=== PATIENT | female | born 1980 | race Caucasian/White ===

== ENCOUNTER 2019-06-19 18:46 | Emergency (ER) | payer OTHER ==
[2019-06-19 19:04] LABS: BILIRUBIN,URINE NEGATIVE (NEGATIVE); GLUCOSE, URINE (UA) NEGATIVE (NEGATIVE); KETONES,URINE (UA) NEGATIVE (NEGATIVE); LEUKOCYTE ESTERASE, URINE TRACE (NEGATIVE); NITRITE,URINE NEGATIVE (NEGATIVE); OCCULT BLOOD,URINE TRACE-INTA (NEGATIVE); PH,URINE 6.5 PH (5.0-7.5); PROTEIN,URINE NEGATIVE (NEGATIVE); UROBILINOGEN,URINE 0.2 (NORMAL) E.U./dL (NORMAL)
[2019-06-19 19:05] LABS: CLARITY,URINE CLEAR (CLEAR); HCG UR QUAL NEGATIVE
[2019-06-19] MEDS ORDERED: ONDANSETRON 4 MG/2 ML VIAL IVP STA (19:09)
[2019-06-19] MEDS ORDERED: HYDROmorphone 1 MG/ML CARPUJECT IVP STA (19:09)
--- NOTE | 2019-06-19 19:10 | ED Physician Documentation ---
PD HPI ABD PAIN - Stated complaint Stated Complaint: RT SIDE ADB PX/NAUSEA - Chief complaint Chief Complaint: Abd Pain - History obtained from History obtained from: Patient - History of Present Illness Timing - onset: Other (For the last couple of weeks she has had increasing episodic right upper quadrant pain radiating to the back and right shoulder. Its been especially bad over the last couple of days. It was especially bad last night after eating a fan fatty meal. She saw her doctor on . Reportedly labs were negative. She had an x-ray that was negative. She is scheduled for an ultrasound but is getting worse rapidly. No history of abdominal surgeries.) Review of Systems Ten Systems: 10 systems reviewed and negative Constitutional: denies: Fever, Chills Throat: reports: Reviewed and negative Cardiac: reports: Reviewed and negative Respiratory: reports: Reviewed and negative PD PAST MEDICAL HISTORY - Present Medications Home Medications: Ambulatory Orders Medication Instructions Recorded Confirmed Hydrocodone/Acetaminophen 1 - 2 each PO Q6H PRN #14 tablet 06/19/19 [Hydrocodon-Acetaminophen 5-325] - Allergies Allergies/Adverse Reactions: Allergies Allergy/AdvReac Type Severity Reaction Status Date / Time No Known Drug Allergies Allergy Verified 06/19/19 18:49 PD ED PE NORMAL - Vitals Vital signs reviewed: Yes - General General: Alert and oriented X 3, No acute distress - HEENT HEENT: PERRL, EOMI - Neck Neck: Supple, no meningeal sign, No bony TTP - Cardiac Cardiac: RRR, No murmur - Respiratory Respiratory: No respiratory distress, Clear bilaterally - Abdomen Abdomen: Soft, Other (Focal tenderness in the right upper quadrant with positive Acosta sign) - Back Back: No CVA TTP, No spinal TTP - Derm Derm: Normal color, Warm and dry - Extremities Extremities: No edema, No calf tenderness / cord - Neuro Neuro: Alert and oriented X 3, Normal speech Results - Vitals Vitals: Vital Signs - 24 hr 06/19/19 06/19/19 06/19/19 18:49 19:13 20:21 Temperature 36.5 C Heart Rate 87 80 90 Respiratory 16 20 17 Rate Blood Pressure 124/92 H 149/117 H 132/81 H O2 Saturation 99 99 97 06/19/19 21:04 Temperature Heart Rate 84 Respiratory 17 Rate Blood Pressure 141/99 H O2 Saturation 99 Oxygen O2 Source Room air - EKG (time done) 1859 Rate: Rate (enter#) (82) Rhythm: NSR [place]: Normal Intervals: Normal TN QRS: LVH Ischemia: Normal ST segments Computer interpretation: Agree with computer - Labs Labs: Laboratory Tests 06/19/19 06/19/19 06/19/19 18:56 18:56 19:20 WBC 10.0 RBC 4.45 Hgb 12.8 Hct 38.8 MCV 87.2 MCH 28.8 MCHC 33.0 RDW 12.5 Plt Count 379 MPV 8.5 Neut # (Auto) 6.3 Lymph # (Auto) 2.7 [place] # (Auto) 0.7 Eos # (Auto) 0.2 Baso # (Auto) 0.0 Absolute Nucleated RBC 0.00 Nucleated RBC % 0.0 D-Dimer Sodium Potassium Chloride Carbon Dioxide Anion Gap BUN Creatinine Estimated GFR (MDRD) Glucose Calcium Total Bilirubin AST ALT Alkaline Phosphatase Total Protein Albumin Globulin Albumin/Globulin Ratio Lipase Urine Color LT. YELLOW Urine Clarity CLEAR Urine pH 6.5 Ur Specific [place] <=1.005 <=1.005 Urine Protein NEGATIVE Urine Glucose (UA) NEGATIVE Urine Ketones NEGATIVE Urine Occult Blood TRACE-INTA Urine Nitrite NEGATIVE Urine Bilirubin NEGATIVE Urine Urobilinogen 0.2 (NORMAL) Ur Leukocyte Esterase TRACE H Urine RBC 0-5 Urine WBC 0-3 Ur Squamous Epith Cells MOD Squamous H Urine Bacteria Rare Ur Microscopic Review INDICATED Urine Culture Comments NOT INDICATED Urine HCG, Qual NEGATIVE 06/19/19 06/19/19 19:20 19:20 WBC RBC Hgb Hct MCV MCH MCHC RDW Plt Count MPV Neut # (Auto) Lymph # (Auto) [place] # (Auto) Eos # (Auto) Baso # (Auto) Absolute Nucleated RBC Nucleated RBC % D-Dimer 257.9 H Sodium 138 Potassium 3.8 Chloride 104 Carbon Dioxide 24 Anion Gap 10.0 BUN 16 Creatinine 0.8 Estimated GFR (MDRD) 79 L Glucose 93 Calcium 9.3 Total Bilirubin 0.5 AST 16 ALT 17 Alkaline Phosphatase 50 Total Protein 7.2 Albumin 3.6 Globulin 3.6 Albumin/Globulin Ratio 1.0 Lipase 31 Urine Color Urine Clarity Urine pH Ur Specific [place] Urine Protein Urine Glucose (UA) Urine Ketones Urine Occult Blood Urine Nitrite Urine Bilirubin Urine Urobilinogen Ur Leukocyte Esterase Urine RBC Urine WBC Ur Squamous Epith Cells Urine Bacteria Ur Microscopic Review Urine Culture Comments Urine HCG, Qual PD MEDICAL DECISION MAKING - ED course ED course: 39-year-old woman with pain that seems very closely related to biliary colic which is worsening. That said her ultrasound and labs are negative. She relates she had a similar episode last year and had a borderline HIDA scan, but subsequently all those symptoms went away. Her d-dimer is negative. There is some elements that this may be musculoskeletal pain as her rib cage is tender on the right 2. Departure - Departure Disposition: 01 Home, Self Care Clinical Impression: Abdominal pain Qualifiers: Abdominal location: right upper quadrant Qualified Code(s): R10.11 - Right upper quadrant pain Condition: Good Record reviewed to determine appropriate education?: Yes Instructions: ED Abdominal Pain Unkn Cause Prescriptions: Hydrocodone/Acetaminophen [Hydrocodon-Acetaminophen 5-325] 1 - 2 each PO Q6H PRN #14 tablet PRN Reason: pain Comments: As discussed, your work-up shows no gallstones or abnormalities in the gallbladder. There are cases where this still may be your gallbladder and like last year, your doctor should repeat the HIDA scan. Return for new or worsening symptoms.
[2019-06-19 19:18] LABS: BACTERIA,URINE Rare /HPF (None Seen); RBC,URINE 0-5 /HPF (0-5); SQUAMOUS EPITHELIAL CELL,UR MOD Squamous (<= Few)
[2019-06-19 19:32] LABS: BASOPHILS % (AUTO) 0.4 %; EOSINOPHILS # (AUTO) 0.2 10^3/uL (0.0-0.7); EOSINOPHILS % (AUTO) 2.2 %; HGB - HEMOGLOBIN 12.8 g/dL (12.0-16.0); LYMPHOCYTES # (AUTO) 2.7 10^3/uL (1.5-3.5); LYMPHOCYTES % (AUTO) 27.1 %; MEAN CORPUSCULAR HEMOGLOBIN 28.8 pg (27.0-31.0); MEAN CORPUSCULAR VOLUME 87.2 fL (81.0-99.0); MEAN PLATELET VOLUME 8.5 fL (7.9-10.8); MONOCYTES # (AUTO) 0.7 10^3/uL (0.0-1.0); MONOCYTES % (AUTO) 6.7 %; NEUTROPHILS # (AUTO) 6.3 10^3/uL (1.5-6.6); NEUTROPHILS % (AUTO) 63.2 %; PLT - PLATELET COUNT 379 10^3/uL (130-450); RED BLOOD COUNT 4.45 10^6/uL (4.20-5.40); RED CELL DISTRIBUTION WIDTH 12.5 % (12.0-15.0)
[2019-06-19 19:49] LABS: ALBUMIN 3.6 g/dL (3.2-5.5); BILIRUBIN,TOTAL 0.5 mg/dL (0.2-1.0); CALCIUM 9.3 mg/dL (8.5-10.3); CREATININE 0.8 mg/dL (0.4-1.0); TOTAL PROTEIN 7.2 g/dL (6.7-8.2)
--- NOTE | 2019-06-19 20:36 | Ultrasound Report ---
Reason: RUQ pain Procedure Date: 06/19/2019 Accession Number: [id number] / [id number] Procedure: US - Abdomen Limited CPT Code: FULL RESULT: EXAM: ABDOMEN ULTRASOUND LIMITED, RUQ EXAM DATE: 06/19/2019 07:42 PM. CLINICAL HISTORY: RUQ pain. COMPARISON: None. TECHNIQUE: Real-time scanning was performed with static images obtained. FINDINGS: Liver: No significant focal lesions. 18.9 cm. Main portal vein flow: Hepatopetal. Gallbladder: No stones or wall thickening. Sonographic Acosta's sign positive. Biliary System: CBD measures 3 mm. No intrahepatic or extrahepatic ductal dilatation. Right kidney: Measures 10.3 cm in length. Hydronephrosis or suspicious lesions. IMPRESSION: 1. No acute findings identified including no evidence of acute cholecystitis. 2. No cholelithiasis. 3. Nonspecific positive sonographic Acosta's sign [facility] ADDENDUM: 06/28/19 01:10 Under "Right Kidney"wave in the FINDINGS section, the second sentence should have read: No hydronephrosis or suspicious lesions.
[2019-06-19] MEDS ORDERED: KETOROLAC 30 MG/ML VIAL IVP STA (20:54)
[2019-06-19 21:05] VITALS: BP 141/99
[2019-06-19] MEDS ORDERED: HYDROcod/ACET 5/325 Prepack 4 PO STA (21:16)
== END 2019-06-19 21:28 | disposition home or self-care (01) ==
LOC: ED 18:46
DX: R10.11 Right upper quadrant pain (principal)
CPT/HCPCS: 36415; 76705; 80053; 81001; 81025; 83690; 85025; 85379; 93005; 96374; 96375; 99284; J1170; 81003; 87086

== ENCOUNTER 2019-07-25 09:58 | Day surgery (SDC) | payer OTHER ==
[~2019-07-25 09:58] MED LIST: BUPIVACAINE 0.5%-EPI 1:200000 PF 30 ML VIAL ONE; LACTATED RINGERS 1,000 ML IV ONE; ceFAZolin 3 GM in SODIUM CHLORIDE 0.9% 100ML 100 ML IV SCH
[2019-07-25 10:14] LABS: HCG UR QUAL NEGATIVE
--- NOTE | 2019-07-25 10:49 | ANESTHESIA ---
Pre-Anesthesia VS, & Labs - Diagnosis Biliary Colic - Procedure Lap Daisy Vital Signs: Temp Pulse Resp BP Pulse Ox 36 C L 103 H 16 152/122 H 96 07/25/19 10:07 07/25/19 10:07 07/25/19 10:07 07/25/19 10:07 07/25/19 10:07 Height 5 ft 3 in Weight (kg) 129 kg Body Mass Index 51.2 - NPO >8 hours - Is Patient ?: No Home Medications and Allergies Home Medications: Ambulatory Orders Etonogestrel/Ethinyl Estradiol [Nuvaring Vaginal Ring] 1 vag ring VG DAILY 07/22/19 Folic Acid/Vit B Complex and C [Activite Tablet] 1 mg PO DAILY 07/22/19 Nortriptyline HCl 10 mg PO DAILY 07/22/19 Pantoprazole Sodium [Protonix] 40 mg PO DAILY 07/22/19 Tramadol HCl 50 mg PO DAILY PRN 07/22/19 dilTIAZem HCl [Diltiazem 24Hr ER (Cd)] 120 mg PO DAILY 07/22/19 Active Medications Cefazolin Sodium 3 gm/ Sodium (Chloride) 100 mls @ 200 mls/hr IV ONCE DANICA Stop: 07/25/19 15:00 Etonogestrel/Ethinyl Estradiol [Nuvaring Vaginal Ring] 1 vag ring VG DAILY 07/22/19 Folic Acid/Vit B Complex and C [Activite Tablet] 1 mg PO DAILY 07/22/19 Nortriptyline HCl 10 mg PO DAILY 07/22/19 Pantoprazole Sodium [Protonix] 40 mg PO DAILY 07/22/19 Tramadol HCl 50 mg PO DAILY PRN 07/22/19 dilTIAZem HCl [Diltiazem 24Hr ER (Cd)] 120 mg PO DAILY 07/22/19 Allergies/Adverse Reactions: Allergies Allergy/AdvReac Type Severity Reaction Status Date / Time latex AdvReac Rash Verified 07/22/19 11:17 morphine AdvReac Itching Verified 07/22/19 11:17 [From Radha (PF)] Anes History & Medical History - Anesthetic History Anesthesia Complications: reports: No previous complications - Medical History Cardiovascular: reports: Arrhythmia (controlled with diltizem) Pulmonary: reports: None Gastrointestinal: reports: GERD (controlled with med), Chronic diarrhea, Cholelithiasis, Other Urinary: reports: Chronic bladder infection Neuro: reports: Multiple sclerosis Musculoskeletal: reports: Osteoarthritis, Fibromyalgia, Fatigue Endocrine/Autoimmune: reports: None, Other (Morbid obesity) Skin: reports: None Smoking Status: Never smoker Psychosocial: reports: No issues indicated - Surgical History Eyes Ears Nose Throat (EENT): Tonsil/Adenoidectomy Exam General: Alert, Oriented x3, Cooperative, No acute distress Dental: WNL Mouth Openin Fingerbreadth Neck Mobility: Normal Mallampati classification: II Thyromental Distance: greater than 6 cm Respiratory: Lungs clear, Normal breath sounds, No respiratory distress, No accessory muscle use Cardiovascular: Regular rate, Normal S1, Normal S2, No murmurs Mental/Cognitive Status: Alert/Oriented X3, Normal for patient Plan Anesthesia Type: General Consent for Procedure(s) Verified and Reviewed: Yes Code Status: Attempt Resuscitation ASA classification: 2-Mild systemic disease Is this case an emergency?: No
[2019-07-25] MEDS ORDERED: SCOPOLAMINE PATCH TOP ONE (10:54)
[2019-07-25] MEDS ORDERED: PROPOFOL 200 MG/20 ML VIAL IVP ONE (12:21)
[2019-07-25] MEDS ORDERED: PROPOFOL 1000 MG/100 ML 100 ML IV ONE (12:21)
[2019-07-25] MEDS ORDERED: MIDAZOLAM 2 MG/2 ML VIAL IVP ONE (12:21)
[2019-07-25] MEDS ORDERED: ONDANSETRON 4 MG/2 ML VIAL IVP ONE (12:21)
[2019-07-25] MEDS ORDERED: fentaNYL 250 MCG/5 ML VIAL IVP ONE (12:21)
[2019-07-25] MEDS ORDERED: DEXAMETHASONE 4 MG/ML VIAL IVP ONE (12:21)
[2019-07-25] MEDS ORDERED: METOPROLOL 5 MG/5 ML VIAL IVP ONE (12:21)
[2019-07-25] MEDS ORDERED: ROCURONIUM 50 MG/5 ML VIAL IVP ONE (12:21)
[2019-07-25] MEDS ORDERED: KETOROLAC 30 MG/ML VIAL IVP ONE (12:21)
[2019-07-25] MEDS ORDERED: SUGAMMADEX 500 MG/5 ML VIAL IVP ONE (13:42)
[2019-07-25] MEDS ORDERED: oxyCODONE 5 MG TABLET PO PRN (13:50)
[2019-07-25] MEDS ORDERED: ONDANSETRON 4 MG/2 ML VIAL IVP PRN (13:50)
[2019-07-25] MEDS ORDERED: IBUPROFEN 600 MG TABLET PO PRN (13:50)
[2019-07-25] MEDS ORDERED: ACETAMINOPHEN 325 MG TABLET PO PRN (13:50)
[2019-07-25] MEDS: fentaNYL 100 MCG/2 ML VIAL ONE ×2 (13:55→14:02)
[2019-07-25] MEDS ORDERED: LACTATED RINGERS 1,000 ML IV ONE (14:00)
[2019-07-25] MEDS: HYDROmorphone 1 MG/ML CARPUJECT ONE ×2 (14:10→14:18)
[2019-07-25] MEDS ORDERED: ONDANSETRON 4 MG/2 ML VIAL ONE (14:49)
[2019-07-25] MEDS ORDERED: oxyCODONE 5 MG TABLET ONE (14:50)
--- NOTE | 2019-07-25 15:39 | OPERATIVE REPORT ---
DATE OF SERVICE: 07/25/2019 Physician: Johan Barreto MD PREOPERATIVE DIAGNOSIS: Symptomatic gallbladder disease. POSTOPERATIVE DIAGNOSIS: Symptomatic gallbladder disease. PROCEDURE PERFORMED: Laparoscopic cholecystectomy. ANESTHESIA: General endotracheal by Maicol Abbott CRNA. SURGEON: Johan Barreto MD ESTIMATED BLOOD LOSS: 10 mL DRAINS: None. FINDINGS: Laparoscopy revealed a largely intrahepatic gallbladder with extensive pericholecystic adh esions. Cystic duct was of normal caliber. Common duct was not visualized. The visualized portions of the liver, stomach, small and large bowel were normal except for what appeared to be fatty change involving the liver. Following resection, the gallbladder was seen to contain cholesterolosis and w hat appeared to be multiple tiny cholesterol polyps. INDICATIONS: Patient is a 39-year-old woman with recurrent postprandial right upper quadrant pain an d fatty food intolerance typical for biliary colic. Evaluation included ultrasonography which was no rmal, and a HIDA scan which showed a diminished gallbladder ejection fraction. She is felt to be suf fering from symptomatic gallbladder disease including possible biliary dyskinesia, chronic acalculous cholecystitis or possibly chronic calculus cholecystitis with stones not visualized on imaging studi es. She was advised to undergo laparoscopic cholecystectomy and attempted definitive surgical treatm ent of her condition. TECHNIQUE: After informed consent, patient was taken to the operating room and she was placed under general endotracheal anesthesia. Preoperative preparation included the application of sequential gera f compression boots, administration of 3 grams cefazolin intravenously within an hour of the incision area, and was prepped with ChloraPrep solution and draped in the usual sterile fashion. The procedu re was technically difficult due to morbid obesity and the largely intrahepatic nature of her gallbla dder. A transverse incision was made along the inferior edge of the umbilicus and carried down throu gh the layers of abdominal wall until the peritoneum was identified and entered sharply. A 10 mm Has son cannula was inserted. Pneumoperitoneum was achieved with carbon dioxide. A 10 mm 30-degree Stry ker telescope was inserted. Laparoscopy was carried out with findings noted above. Three additional 5 mm ports were placed in the right upper quadrant. The patient was placed in steep Trendelenburg p osition. The gallbladder was exposed. Pericholecystic adhesions were lysed bluntly and with electro cautery. The gallbladder was grasped and retracted in cephalad and lateral direction, exposing the c ystic triangle of Calot. This region was carefully dissected using hook electrocautery, isolating th e cystic duct, cystic artery, neck of the gallbladder and the critical view of safety, following whic h the cystic duct was triply clipped distally, doubly proximally and divided between the cystic arter y, doubly clipped proximally and distally adjacent to the gallbladder and divided between. The gallb ladder was then excised from the liver bed using electrocautery for dissection and hemostasis. It wa s detached intact, placed in an organ retrieval bag, extracted, opened on a side table with findings noted above, and then the tissue sent for pathologic evaluation. After hemostasis was ensured, the r ight upper quadrant was copiously irrigated with saline solution, following which instruments and can nulas were removed under direct vision. Pneumoperitoneum was allowed to escape. The incision was cl osed in layers using continuous 0 Vicryl to reapproximate the midline fascia at the umbilicus, follow ed by 4-0 Monocryl subcuticular skin closure at all the port sites. Then, 20 mL of 0.5% Marcaine wit h epinephrine were infiltrated into the incisions to assist in postoperative analgesia. Dermabond wa s applied. Anesthesia was terminated and patient was transferred to the recovery room in satisfactor y condition. Sponge and needle counts were correct x2. No drains were used. cc: Artem Pope DO TD: 07/25/2019 14:00
[2019-07-25 16:04] VITALS: BP 135/97
== END 2019-07-25 09:59 | disposition home or self-care (01) ==
LOC: SDS 09:58
PROVIDERS: ATTEND Internal Medicine Gastroenterology
PROC: 0FT44ZZ Resection of Gallbladder, Percutaneous Endoscopic Approach (ICD-10-PCS; principal; 2019-07-25 11:15)
DX: K81.1 Chronic cholecystitis (principal); K21.9 Gastro-esophageal reflux disease without esophagitis; I47.1 Supraventricular tachycardia; E66.01 Morbid (severe) obesity due to excess calories; Z68.43 Body mass index [BMI] 50.0-59.9, adult; G35 Multiple sclerosis
CPT/HCPCS: 47562; 81025; A9270; J1170; J3010; J3490; J7120

== ENCOUNTER 2020-04-03 10:34 | Outpatient (CLI) | payer OTHER ==
--- NOTE | 2020-04-04 10:54 | Ultrasound Report ---
LIMITED ULTRASOUND OF RIGHT BREAST AND AXILLA: 04/03/2020 CLINICAL: Spiculated irregular mass @ 10 O'C 9 cmfn. Comparison is made to exam dated: 04/03/2020 mammogram - [facility]. Color flow and real-time ultrasound of the right breast upper outer quadrant and axilla regions were performed. Swann scale images of the real-time examination were reviewed. There is a 1.7 cm x 2.4 cm irregular mass with a spiculated margin in the right breast at 10 o'clock posterior depth 9 cm from the nipple. This irregular mass is hypoechoic with a hyperechoic rim and p osterior acoustic shadowing. This correlates as palpated and with mammography findings. Color flow imaging demonstrates that there is vascularity present. There also is an enlarged lymph node in the right axillary tail. This enlarged lymph node displays n o fatty hilum. Additionally, there is a 0.6 cm x 0.6 cm x 0.7 cm irregular mass in the right breast at 11 o'clock po sterior depth 11 cm from the nipple. This correlates with mammography findings. IMPRESSION: HIGHLY SUGGESTIVE OF MALIGNANCY The 1.7 cm x 2.4 cm irregular mass in the right breast at 10 o'clock posterior depth is consistent wi th carcinoma and is highly suggestive of malignancy. An ultrasound guided biopsy is recommended. The enlarged lymph node in the right axillary tail is consistent with an enlarged lymph node and is h ighly suggestive of malignancy. An ultrasound guided biopsy is recommended. The 0.6 cm x 0.6 cm x 0.7 cm irregular mass in the right breast at 11 o'clock posterior depth is susp icious for multicentric malignancy. Findings and recommendations discussed with the patient by Dr. Guerrero at the time of exam. This exam was interpreted at Station ID: [id number]. Electronically Signed By: Constanza manning/:04/03/2020 15:08:07 Ultrasound BI-RADS: 5 Highly suggestive of malignancy BI-RADS CATEGORY: (5) - 5 None [id number] Immediate follow-up LATERALITY: ()
--- NOTE | 2020-04-04 10:54 | Mammography Report ---
BILATERAL DIGITAL DIAGNOSTIC MAMMOGRAM 3D/2D: 04/03/2020 CLINICAL: Palpable right breast lump. Diffuse right breast pain. Diffuse left breast pain. Baseline e xam. No prior exams were available for comparison. There are scattered fibroglandular elements in both br easts. There is a 3.2 cm irregular mass with a spiculated margin in the right breast at 11 o'clock posterior depth. There is architectural distortion associated with the mass. This correlates as palpated. There also is a 1 cm oval mass with a spiculated margin in the right breast at 11 o'clock posterior d epth. Finding is seen best on tomography. Additionally, there is an irregular asymmetry with a spiculated margin in the right breast at 12 o'cl ock middle depth. No other significant masses, calcifications, or other findings are seen in either breast. IMPRESSION: INCOMPLETE: NEEDS ADDITIONAL IMAGING EVALUATION The 3.2 cm irregular mass in the right breast at 11 o'clock posterior depth is highly suspicious and indeterminate. The 1 cm oval mass in the right breast at 11 o'clock posterior depth has a differential diagnosis of carcinoma or a lymph node and is indeterminate. The irregular asymmetry in the right breast at 12 o'clock middle depth is indeterminate. An ultrasound is recommended. This was performed immediately following this exam. This exam was interpreted at Station ID: [id number]. NOTE: For mammograms, a report in lay terms will be sent to the patient. Approximately 15% of breast malignancies will not be visualized mammographically. In the management of a palpable breast mass, a negative mammogram must not discourage biopsy of a clinically suspicious lesion. Electronically Signed By: Constanza manning/:04/03/2020 14:23:22 ACR BI-RADS Category 0: Incomplete [id number] PARENCHYMAL PATTERN: (A) - The breast(s) demonstrate(s) scattered fibroglandular densities. BI-RADS CATEGORY: (0) - 0 Ultrasound [id number] Immediate follow-up LATERALITY: (B)
== END 2020-04-03 10:35 | disposition home or self-care (01) ==
LOC: DI 10:34
PROVIDERS: ATTEND Family Medicine
DX: N63.11 Unspecified lump in the right breast, upper outer quadrant (principal); R59.0 Localized enlarged lymph nodes
CPT/HCPCS: 76642; 77066

== ENCOUNTER 2020-04-10 12:57 | Outpatient (CLI) | payer OTHER ==
[~2020-04-10 12:57] MED LIST changes: -BUPIVACAINE 0.5%-EPI 1:200000 PF 30 ML VIAL ONE; +IOTHALAMATE MEGLUMINE 50 ML VIAL ONE; -LACTATED RINGERS 1,000 ML IV ONE; -ceFAZolin 3 GM in SODIUM CHLORIDE 0.9% 100ML 100 ML IV SCH
[2020-04-10] MEDS ORDERED: BUFFERED LIDOCAINE 10 ML SYRINGE IU ONE (15:08)
--- NOTE | 2020-04-11 09:08 | Mammography Report ---
UNILATERAL RIGHT DIGITAL DIAGNOSTIC MAMMOGRAM 3D/2D: 04/10/2020 No prior exams were available for comparison. There are scattered fibroglandular elements in right b reast. There is a marker clip in the appropriate position in the suspicious right breast mass. IMPRESSION: POST PROCEDURE MAMMOGRAM FOR MARKER PLACEMENT Successful marker clip placement in the suspicious right breast mass. NOTE: For mammograms, a report in lay terms will be sent to the patient. Approximately 15% of breast malignancies will not be visualized mammographically. In the management of a palpable breast mass, a negative mammogram must not discourage biopsy of a clinically suspicious lesion. Electronically Signed By: Bhupinder Mccallum jr/:04/10/2020 16:42:06 ACR BI-RADS Category Post-procedure mammogram for marker placement PARENCHYMAL PATTERN: (A) - The breast(s) demonstrate(s) scattered fibroglandular densities. BI-RADS CATEGORY: () - Unspecified - other recall n/a LATERALITY: (B)
--- NOTE | 2020-04-19 12:31 | Ultrasound Report ---
MULTIPLE ULTRASOUND GUIDED BIOPSIES RIGHT BREAST WITH POST MAMMOGRAPHIC IMAGIN04/10/2020 CLINICAL: Right axillary node biopsy. Post right breast ultrasound biopsy, clip placement imaging. PATIENT CONSENT: Risks (minor bleeding, infection, vasovagal reaction and repeat procedure), benefits and alternatives were explained to the patient and written informed consent was obtained. Correlation is made to exams dated: 04/10/2020 mammogram, 04/03/2020 ultrasound, and 04/03/2020 mammogr [facility]. An ultrasound guided biopsy using real-time ultrasound was performed for the concerning taller than w garrett spiculated irregular shaped mass located in the right breast at 10 o'clock posterior depth. This was described on the previous ultrasound report. The skin was prepped in the usual manner. A 14 ga uge biopsy needle was placed adjacent to the abnormality under ultrasound guidance. Once the needle was documented to be in the correct location, three passes were made using an automated biopsy gun. Post procedure mammographic imaging demonstrates the clip at the targeted area. The specimens were s ent to the laboratory for pathological analysis. A second ultrasound guided biopsy using real-time ultrasound was performed for the concerning lymph n ode located in the right axilla. The skin was prepped in the usual manner. A 14 gauge biopsy needle was placed adjacent to the abnormality under ultrasound guidance. Once the needle was documented to be in the correct location, three passes were made using an automated biopsy gun. The specimens wer e sent to the laboratory for pathological analysis. IMPRESSION: ULTRASOUND GUIDED BIOPSY MALIGNANT Ultrasound guided biopsy of the taller than wide mass in the right breast at 10 o'clock posterior dep th was successful. Pathology indicates malignant infiltrating ductal carcinoma. Pathology results a re concordant with imaging findings. A surgical/oncologic consultation is recommended. Pathology of biopsied lymph node also demonstrates infiltrating ductal carcinoma, metastatic. Surg/ O nc consult is recommended. This exam was interpreted at Station ID: [id number]. Bhupinder Brasher M.D. ,krg/:04/12/2020 19:36:06 BI-RADS CATEGORY: () - Unspecified - other recall n/a LATERALITY: (B)
== END 2020-04-10 12:58 | disposition home or self-care (01) ==
LOC: DI 12:57
PROVIDERS: ATTEND Family Medicine
DX: C50.411 Malignant neoplasm of upper-outer quadrant of right female breast (principal); C77.3 Secondary and unspecified malignant neoplasm of axilla and upper limb lymph nodes; Z17.0 Estrogen receptor positive status [ER+]
CPT/HCPCS: 19083

== ENCOUNTER 2020-04-20 15:08 | Outpatient (CLI) | payer OTHER | END 2020-04-20 15:09 | disposition home or self-care (01) | LOC: DI 15:08 | PROVIDERS: ATTEND Surgery | DX: Z53.9 Procedure and treatment not carried out, unspecified reason (principal) ==

== ENCOUNTER 2020-05-04 08:34 | Outpatient (CLI) | payer OTHER | END 2020-05-04 08:35 | disposition home or self-care (01) | LOC: LAB 08:34 | PROVIDERS: ATTEND Surgery | DX: Z01.812 Encounter for preprocedural laboratory examination (principal); C50.911 Malignant neoplasm of unspecified site of right female breast; Z11.59 Encounter for screening for other viral diseases ==

== ENCOUNTER 2020-05-07 11:12 | Day surgery (SDC) | payer OTHER ==
[2020-05-07] MEDS ORDERED: MIDAZOLAM 2 MG/2 ML VIAL IVP ONE (11:13)
[2020-05-07] MEDS ORDERED: LIDOCAINE-MPF 2% 5 ML VIAL IM ONE (11:13)
[2020-05-07] MEDS ORDERED: GLYCOPYRROLATE 1 MG/5 ML VIAL IVP ONE (11:13)
[2020-05-07] MEDS ORDERED: PIPERACILLIN/TAZOBACTAM 3.375 GM in SODIUM CHLORIDE 0.9% MINIBAG 100 ML IV ONE (11:13)
[2020-05-07] MEDS ORDERED: fentaNYL 100 MCG/2 ML VIAL IVP ONE (11:13)
[2020-05-07] MEDS ORDERED: PROPOFOL 200 MG/20 ML VIAL IVP ONE (11:13)
[2020-05-07] MEDS ORDERED: LACTATED RINGERS 1,000 ML IV ONE ×2 (11:19→15:20)
[2020-05-07] MEDS ORDERED: CEFAZOLIN SODIUM IN 0.9 % NACL 2 GM/100 ML BAG IV ONE (11:23)
[2020-05-07 11:28] LABS: HCG UR QUAL NEGATIVE
--- NOTE | 2020-05-07 12:33 | ANESTHESIA ---
Pre-Anesthesia VS, & Labs - Diagnosis breast cancer - Procedure Portacath placement Vital Signs: Temp Pulse Resp BP Pulse Ox 36.5 C 97 18 154/89 H 97 05/07/20 11:26 05/07/20 11:26 05/07/20 11:26 05/07/20 11:26 05/07/20 11:26 Height 5 ft 3 in Weight (kg) 127.1 kg Body Mass Index 50.0 - NPO >8 hours - Is Patient ?: No - Lab Results Lab results reviewed: Yes Home Medications and Allergies Home Medications: Ambulatory Orders Ciprofloxacin HCl [Cipro] 500 mg PO 05/07/20 Active Medications Scopolamine HBr (Transderm-Scop) 1 patch TOP Q3D DANICA Etonogestrel/Ethinyl Estradiol [Nuvaring Vaginal Ring] 1 vag ring VG DAILY 07/22/19 Pantoprazole Sodium [Protonix] 40 mg PO DAILY 07/22/19 Tramadol HCl 50 mg PO DAILY PRN 07/22/19 Ciprofloxacin HCl [Cipro] 500 mg PO 05/07/20 Allergies/Adverse Reactions: Allergies Allergy/AdvReac Type Severity Reaction Status Date / Time latex AdvReac Rash Verified 05/02/20 16:16 morphine AdvReac Itching Verified 05/02/20 16:16 [From Duramorph (PF)] Anes History & Medical History - Anesthetic History Anesthesia Complications: reports: No previous complications Family history of Anesthesia Complications: Denies Family history of Malignant Hyperthermia: Denies - Medical History Cardiovascular: reports: Arrhythmia Pulmonary: reports: None Gastrointestinal: reports: GERD, Chronic diarrhea, Cholelithiasis, Other Urinary: reports: None Neuro: reports: Multiple sclerosis Musculoskeletal: reports: Osteoarthritis Endocrine/Autoimmune: reports: None Skin: reports: None Smoking Status: Never smoker - Surgical History General: Cholecystectomy Eyes Ears Nose Throat (EENT): Tonsil/Adenoidectomy Exam General: Alert, Oriented x3, Cooperative, No acute distress Dental: WNL Mouth Openin Fingerbreadth Neck Mobility: Normal Mallampati classification: II Respiratory: Lungs clear, Normal breath sounds, No respiratory distress, No accessory muscle use Cardiovascular: Regular rate, Normal S1, Normal S2, No murmurs Plan Anesthesia Type: MAC Consent for Procedure(s) Verified and Reviewed: Yes Code Status: Attempt Resuscitation ASA classification: 3-Severe systemic disease Is this case an emergency?: No
[2020-05-07] MEDS ORDERED: SCOPOLAMINE PATCH TOP SCH (13:00)
[2020-05-07 13:02] LABS: BILIRUBIN,URINE NEGATIVE (NEGATIVE); GLUCOSE, URINE (UA) NEGATIVE (NEGATIVE); KETONES,URINE (UA) NEGATIVE (NEGATIVE); LEUKOCYTE ESTERASE, URINE SMALL (NEGATIVE); NITRITE,URINE NEGATIVE (NEGATIVE); OCCULT BLOOD,URINE TRACE-INTA (NEGATIVE); PROTEIN,URINE NEGATIVE (NEGATIVE); UROBILINOGEN,URINE 0.2 (NORMAL) E.U./dL (NORMAL)
[2020-05-07 13:03] LABS: CLARITY,URINE SL. CLOUDY (CLEAR)
[2020-05-07 13:07] LABS: BACTERIA,URINE Few /HPF (None Seen); SQUAMOUS EPITHELIAL CELL,UR MOD Squamous (<= Few); WBC CLUMPS,URINE NONE SEEN
[2020-05-07] MEDS ORDERED: BUPIVACAINE 0.5% PF 30 ML VIAL INFIL ONE (14:44)
[2020-05-07] MEDS ORDERED: LIDOCAINE 1%-EPI 1:100000 30 ML MDV SUBQ ONE (14:45)
--- NOTE | 2020-05-07 15:17 | OPERATIVE REPORT ---
Operative Report - General Procedure Date: 05/07/20 Planned Procedure: Left subclavian PowerPort placement Pre-Op Diagnosis: Right invasive breast cancer Procedure Performed: Left subclavian PowerPort placement Post Op Diagnosis: Right invasive breast cancer - Procedure Note Primary Surgeon: Flavio Anesthesia Provider: RONA Lemus Anesthesia Technique: Local, MAC Estimated Blood Loss (mL): 20 Findings: Port in good position in the superior vena cava Complications: None apparent - Other Other Information/Narrative: After obtaining informed consent, the patient is brought to the operating room and placed in supine position on the operating table. Following successful induction of sedation with monitored anesthesia care and appropriate padding of all bony prominences, the left chest and neck were prepped and draped in the standard surgical fashion. A timeout was held per scope protocol. All elements of the surgical safety checklist were followed before, during, and after the procedure. Following infiltration with local anesthetic to create a field block, the left subclavian vein was accessed in the deltopectoral groove. The J-wire was gently placed into the vein. Fluoroscopy was used to confirm the position of the wire and in the subclavian vein. We anesthetized the existing healed scar in the area around it for placement of the port itself. An incision was created here and carried down through the skin and subcutaneous tissue. A pocket was created with blunt dissection. The port tubing was attached to the tunneling device and passed from the access site of the vein into the pocket. It was trimmed to an appropriate length and the port attached. The port was sewn into place in the pocket. The dilator and introducer were then passed over the J-wire that was in the subclavian vein. The J-wire and dilator were removed leaving only the introducer. The tubing was then passed through the introducer and the introducer cracked and removed per slotter operator's directions. The port was then checked for function and flushed and enrique easily. Additional local anesthetic was applied to the chest wall. The port pocket was closed with interrupted Vicryl sutures and Monocryl stitches were placed in both skin incision sites. All sponge, needle, and instrument counts were correct at the conclusion of the case. Chest x-ray in the postanesthesia care unit revealed the port in good position in the superior vena cava without evidence of pneumothorax.
[2020-05-07] MEDS ORDERED: HYDROmorphone 1 MG/ML CARPUJECT ONE (15:26)
[2020-05-07] MEDS ORDERED: KETOROLAC 15 MG/ML VIAL ONE (15:37)
[2020-05-07] MEDS ORDERED: ACETAMINOPHEN 1,000 MG/100 ML 100 ML IV ONE (15:37)
--- NOTE | 2020-05-07 15:54 | XRAY Report ---
Reason: Port Placement Procedure Date: 05/07/2020 Accession Number: [id number] / [id number] Procedure: FL - OR C-Arm Procedure CPT Code: Final Report FULL RESULT: PROCEDURE: OR C-Arm Procedure INDICATIONS: Port Placement CONTRAST: CONTRAST: N/A FLUOROSCOPY TIME: FLUORO TIME: 0.1 MIN and NUMBER IMAGES: 1 COMPARISON: None FINDINGS: The catheter was placed from the left side. Fluoroscopic spot film demonstrates tip of Port-A-Cath in the distal SVC. IMPRESSION: Tip of the catheter lies within the distal SVC. Reviewed by: Hailee Mendoza MD, PhD on 05/07/2020 3:52 PM PDT Approved by: Hailee Mendoza MD, PhD on 05/07/2020 3:52 PM PDT Station ID: [id number]
--- NOTE | 2020-05-07 16:01 | XRAY Report ---
PROCEDURE: Post Port Placement 1V CXR INDICATIONS: Port placement TECHNIQUE: One view of the chest was acquired. COMPARISON: None FINDINGS: Surgical changes and devices: Left chest wall Port-A-Cath is in place. Tip of Port-A-Cath projects bloom periorly into the maximal SVC. Lungs and pleura: No pleural effusions or pneumothorax. Lungs are clear. Mediastinum: Mediastinal contours appear normal. Heart size is normal. Bones and chest wall: No suspicious bony lesions. Overlying soft tissues appear unremarkable. IMPRESSION: Tip of Port-A-Cath superiorly positioned in the proximal SVC. Findings telephoned to Dr. Mnuiz on 05/07 at 1557 hours. Reviewed by: Hailee Mendoza MD, PhD on 05/07/2020 3:59 PM PDT Approved by: Hailee Mendoza MD, PhD on 05/07/2020 3:59 PM PDT Station ID: [id number]
[2020-05-07 16:05] VITALS: BP 143/97
== END 2020-05-07 11:13 | disposition home or self-care (01) ==
LOC: SDS 11:12
PROVIDERS: ATTEND Surgery
PROC: 02HV33Z Insertion of Infusion Device into Superior Vena Cava, Percutaneous Approach (ICD-10-PCS; principal; 2020-05-07 12:30)
DX: C50.911 Malignant neoplasm of unspecified site of right female breast (principal); E66.01 Morbid (severe) obesity due to excess calories; Z17.0 Estrogen receptor positive status [ER+]; Z68.42 Body mass index [BMI] 45.0-49.9, adult
CPT/HCPCS: 36561; 71045; 81001; 81025; C1788; J0131; J0690; J1170; J3490; J7120; 87086

== ENCOUNTER 2020-05-09 08:58 | Outpatient (CLI) | payer OTHER ==
--- NOTE | 2020-05-09 15:02 | Nuclear Medicine Report ---
PROCEDURE: Bone Whole Body INDICATIONS: MALIGNANT NEOPLASM OF UNSPECIFIED LEFT FEMUR RADIOPHARMACEUTICAL: 26.4 mCi Tc-99m MDP IV. TECHNIQUE: Delayed whole-body scintigrams were obtained approximately 3-4 hours after intravenous injection of r adiotracer. Anterior and posterior views were acquired from vertex to feet. Additional left and rig ht oblique views of the head/neck were obtained. COMPARISON: None available. FINDINGS: No abnormal isotope uptake over the axial and appendicular skeleton, no sign of metastatic disease. IMPRESSION: Normal examination. No metastasis found. Reviewed by: Jono Balderas MD on 05/09/2020 3:00 PM PDT Approved by: Jono Balderas MD on 05/09/2020 3:00 PM PDT Station ID: [id number]
== END 2020-05-09 08:59 | disposition home or self-care (01) ==
LOC: DI 08:58
PROVIDERS: ATTEND Internal Medicine
DX: C50.912 Malignant neoplasm of unspecified site of left female breast (principal)
CPT/HCPCS: 78306

== ENCOUNTER 2020-06-08 18:13 | Emergency (ER) | payer OTHER ==
[2020-06-08 18:39] LABS: BILIRUBIN,URINE NEGATIVE (NEGATIVE); CLARITY,URINE CLEAR (CLEAR); GLUCOSE, URINE (UA) NEGATIVE (NEGATIVE); KETONES,URINE (UA) NEGATIVE (NEGATIVE); LEUKOCYTE ESTERASE, URINE TRACE (NEGATIVE); NITRITE,URINE NEGATIVE (NEGATIVE); OCCULT BLOOD,URINE TRACE-INTA (NEGATIVE); PROTEIN,URINE NEGATIVE (NEGATIVE); UROBILINOGEN,URINE 0.2 (NORMAL) E.U./dL (NORMAL)
[2020-06-08 18:49] LABS: BACTERIA,URINE Moderate /HPF (None Seen); RBC,URINE 0-5 /HPF (0-5); SQUAMOUS EPITHELIAL CELL,UR MANY Squamous (<= Few)
[2020-06-08] MEDS ORDERED: IOVERSOL 320 100 ML VIAL IVP ONE ×2 (19:22→20:18)
[2020-06-08 19:30] LABS: BASOPHILS # (AUTO) 0.1 10^3/uL (0.0-0.1); BASOPHILS % (AUTO) 2.8 %; EOSINOPHILS # (AUTO) 0.1 10^3/uL (0.0-0.7); EOSINOPHILS % (AUTO) 1.5 %; HGB - HEMOGLOBIN 11.8 g/dL (12.0-16.0); LYMPHOCYTES # (AUTO) 1.6 10^3/uL (1.5-3.5); LYMPHOCYTES % (AUTO) 33.5 %; MEAN CORPUSCULAR HEMOGLOBIN 30.7 pg (27.0-31.0); MEAN CORPUSCULAR HGB CONC 34.2 g/dL (32.0-36.0); MEAN CORPUSCULAR VOLUME 89.8 fL (81.0-99.0); MEAN PLATELET VOLUME 8.9 fL (7.9-10.8); MONOCYTES % (AUTO) 21.8 %; NEUTROPHILS # (AUTO) 1.8 10^3/uL (1.5-6.6); NEUTROPHILS % (AUTO) 37.4 %; PLT - PLATELET COUNT 353 10^3/uL (130-450); RED BLOOD COUNT 3.84 10^6/uL (4.20-5.40); RED CELL DISTRIBUTION WIDTH 13.1 % (12.0-15.0); WHITE BLOOD COUNT 4.7 x10^3/uL (4.8-10.8)
--- NOTE | 2020-06-08 19:41 | ED Physician Documentation ---
History of Present Illness - Stated complaint Stated Complaint: RT SIDE PX - CHEMO PT - Chief complaint Chief Complaint: UTI - History obtained from History obtained from: Patient - History of Present Illness Timing: Today Pain level max: 8 Pain level now: 8 - Additonal information Additional information: Patient is a 40-year-old female who presents to the emergency department with right flank pain that started today. Concerned about a potential "kidney infection". She is currently undergoing chemotherapy for right-sided breast cancer. There are no distant metastases that we are aware of at this time. No fevers. No chills. Has had pyelonephritis in the past and states that this feels similar. She states that she took a home urinalysis which showed a potential infection. No vomiting. No fever. No chills. No vaginal bleeding or discharge. No dysuria, urinary frequency. Review of Systems Ten Systems: 10 systems reviewed and negative Constitutional: denies: Fever, Chills Throat: denies: Sore throat Cardiac: denies: Palpitations Respiratory: denies: Dyspnea, Cough GI: denies: Nausea, Vomiting, Diarrhea, Hematemesis, Bloody / black stool : denies: Dysuria, Frequency, Hesitancy, Incontinent, Now EGA Skin: denies: Rash Musculoskeletal: denies: Neck pain, Back pain PD PAST MEDICAL HISTORY - Past Medical History Past Medical History: Yes Cardiovascular: Arrhythmia Respiratory: None Neuro: Multiple sclerosis Endocrine/Autoimmune: None GI: GERD, Chronic diarrhea, Cholelithiasis, Other 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 : None HEENT: None Psych: None Musculoskeletal: Osteoarthritis Derm: None - Past Surgical History Past Surgical History: Yes General: Cholecystectomy HEENT: Tonsil/Adenoidectomy - Present Medications Home Medications: Ambulatory Orders Medication Instructions Recorded Confirmed Pantoprazole Sodium [Protonix] 40 mg PO DAILY 07/22/19 05/30/20 Tramadol HCl 50 mg PO DAILY PRN 07/22/19 05/30/20 Lidocaine/Prilocain 2.5% Cream 1 gm TOP BID PRN #1 tube 05/07/20 05/30/20 [Emla 2.5% Cream] oxyCODONE [Roxicodone] 5 mg PO Q4-6H PRN #20 tablet 05/07/20 05/30/20 OLANZapine [Olanzapine] 5 mg PO UD #12 tablet 05/15/20 Ondansetron HCl [Zofran] 8 mg PO BID PRN #30 tablet 05/15/20 Prochlorperazine Maleate 10 mg PO Q6HR PRN #30 tab 05/15/20 [Compazine] Cefdinir 300 mg PO BID #20 capsule 06/08/20 - Allergies Allergies/Adverse Reactions: Allergies Allergy/AdvReac Type Severity Reaction Status Date / Time latex AdvReac Rash Verified 06/08/20 18:22 morphine AdvReac Itching Verified 06/08/20 18:22 [From Duramorph (PF)] - Social History Does the pt smoke?: No Smoking Status: Never smoker Does the pt drink ETOH?: No Does the pt have substance abuse?: No - Immunizations Immunizations are current?: Yes - POLST Patient has POLST: No PD ED PE NORMAL - Vitals Vital signs reviewed: Yes - General General: Alert and oriented X 3, No acute distress - HEENT HEENT: PERRL, Moist mucous membranes - Neck Neck: Supple, no meningeal sign - Cardiac Cardiac: RRR, Strong equal pulses - Respiratory Respiratory: No respiratory distress, Clear bilaterally - Abdomen Abdomen: Normal bowel sounds, Soft, Non tender, Non distended - Back Back: No CVA TTP, No spinal TTP - Derm Derm: Warm and dry - Extremities Extremities: No calf tenderness / cord - Neuro Neuro: Alert and oriented X 3 - Psych Psych: Normal mood, Normal affect Results - Vitals Vitals: Vital Signs - 24 hr 06/08/20 06/08/20 18:17 21:14 Temperature 36.8 C 36.2 C L Heart Rate 106 H 86 Respiratory 18 20 Rate Blood Pressure 135/95 H 107/62 O2 Saturation 98 100 Oxygen O2 Source Room air - Labs Labs: Laboratory Tests 06/08/20 06/08/20 06/08/20 18:27 19:27 19:27 WBC 4.7 L RBC 3.84 L Hgb 11.8 L Hct 34.5 L MCV 89.8 MCH 30.7 MCHC 34.2 RDW 13.1 Plt Count 353 MPV 8.9 Neut # (Auto) 1.8 Lymph # (Auto) 1.6 [place] # (Auto) 1.0 Eos # (Auto) 0.1 Baso # (Auto) 0.1 Absolute Nucleated RBC 0.00 Nucleated RBC % 0.0 Sodium 134 L Potassium 3.7 Chloride 100 L Carbon Dioxide 26 Anion Gap 8.0 BUN 11 Creatinine 0.6 Estimated GFR (MDRD) 110 Glucose 103 H Calcium 9.3 Total Bilirubin 0.4 AST 17 ALT 21 Alkaline Phosphatase 88 Total Protein 7.0 Albumin 4.1 Globulin 2.9 Albumin/Globulin Ratio 1.4 Lipase 26 Urine Color YELLOW Urine Clarity CLEAR Urine pH 6.0 Ur Specific [place] 1.010 Urine Protein NEGATIVE Urine Glucose (UA) NEGATIVE Urine Ketones NEGATIVE Urine Occult Blood TRACE-INTA Urine Nitrite NEGATIVE Urine Bilirubin NEGATIVE Urine Urobilinogen 0.2 (NORMAL) Ur Leukocyte Esterase TRACE H Urine RBC 0-5 Urine WBC 0-3 Ur Squamous Epith Cells MANY Squamous H Urine Bacteria Moderate H Ur Microscopic Review INDICATED Urine Culture Comments NOT INDICATED - Rads (name of study) CT abdomen pelvis Radiology: Prelim report reviewed, EMP read contemporaneously, See rad report PD MEDICAL DECISION MAKING - ED course Complexity details: reviewed results, re-evaluated patient, considered differential, d/w patient ED course: 40-year-old female with flank pain of unclear etiology. No acute findings on laboratory testing or CT scan. She has had recurrent pyelonephritis and given her immunocompromise status, we will prescribe antibiotics for her if she is not improved by tomorrow she can start this. She states she had a positive UA at home. Patient is well-appearing, nontoxic. Afebrile. Patient counseled regarding signs and symptoms for which I believe and urgent re-evaluation would be necessary. Patient with good understanding of and agreement to plan and is comfortable going home at this time This document was made in part using voice recognition software. While efforts are made to proofread this document, sound alike and grammatical errors may occur. 1. No acute disease process. 2. The appendix is normal. 3. No renal stone or hydronephrosis. 4. No free fluid or free air. Departure - Departure Disposition: 01 Home, Self Care Clinical Impression: Flank pain Condition: Good Instructions: ED Abdominal Pain Unkn Cause Follow-Up: Artem Pope DO [Primary Care Provider] - Within 1 week Prescriptions: Cefdinir 300 mg PO BID #20 capsule Comments: The cause of your symptoms is unclear today, if you are not feeling better tomorrow, start the antibiotics. Follow-up with your doctor for further care. Discharge Date/Time: 06/08/20 21:18
[2020-06-08 19:45] LABS: ALBUMIN 4.1 g/dL (3.2-5.5); ALBUMIN/GLOBULIN RATIO 1.4 (1.0-2.2); BILIRUBIN,TOTAL 0.4 mg/dL (0.2-1.0); CALCIUM 9.3 mg/dL (8.5-10.3); CREATININE 0.6 mg/dL (0.4-1.0)
--- NOTE | 2020-06-08 20:45 | CT Report ---
PROCEDURE: Abdomen/Pelvis W INDICATIONS: R flank pain, h/o breast CA, on chemo CONTRAST: IV CONTRAST: Optiray 320 ml: 100 PO CONTRAST: *NO PO CONTRAST TECHNIQUE: After the administration of intravenous contrast, 5 mm thick sections acquired from the diaphragms to the symphysis. 5 mm thick coronal and sagittal reformats were acquired. For radiation dose reducti on, the following was used: automated exposure control, adjustment of mA and/or kV according to cuong ent size. COMPARISON: . FINDINGS: Image quality: Excellent. ABDOMEN: Lung bases: Lung bases are clear. Heart size is normal. Solid organs: Liver and spleen are normal in size and enhancement. Gallbladder is surgically absent Biliary system is non dilated. Pancreas enhances normally. No adrenal nodules. Kidneys demonstra te normal size and enhancement, without hydronephrosis. Peritoneum and bowel: Bowel loops demonstrate normal wall thickness and caliber. No free fluid or a ir. The appendix is normal. Nodes and vessels: No retroperitoneal or mesenteric adenopathy by size criteria. Aorta and inferior vena cava are normal in size. Miscellaneous: No ventral hernias. PELVIS: Genitourinary: Bladder wall thickness is normal. Miscellaneous: No inguinal hernias or adenopathy. Bones: No suspicious bony lesions. No vertebral body compression fractures. IMPRESSION: 1. No acute disease process. 2. The appendix is normal. 3. No renal stone or hydronephrosis. 4. No free fluid or free air. Reviewed by: Hailee Mendoza MD, PhD on 06/08/2020 8:43 PM PDT Approved by: Hailee Mendoza MD, PhD on 06/08/2020 8:43 PM PDT Station ID: [id number]
[2020-06-08 21:15] VITALS: BP 107/62
== END 2020-06-08 21:18 | disposition home or self-care (01) ==
LOC: ED 18:13
DX: R10.9 Unspecified abdominal pain (principal); C50.911 Malignant neoplasm of unspecified site of right female breast; Z79.899 Other long term (current) drug therapy
CPT/HCPCS: 36415; 74177; 80053; 81001; 83690; 85025; 96374; 99283; 99285; Q9967; 81003; 87086

== ENCOUNTER 2020-07-03 15:29 | Emergency (ER) | payer OTHER ==
--- NOTE | 2020-07-03 15:40 | ED Physician Documentation ---
PD HPI ABD PAIN - Stated complaint Stated Complaint: ABD PX - Chief complaint Chief Complaint: Abd Pain - History obtained from History obtained from: Patient - History of Present Illness Timing - onset: Last night Timing - details: Gradual onset, Still present, Waxing and waning Quality: Aching, Pain Location: RUQ (just under rib margin and wrapping around to back on right side. No pain on left.) Radiation: Right flank Improved by: No: Eating Worsened by: Moving, Palpation. No: Eating, Breathing Associated symptoms: Nausea. No: Fever, Vomiting, Diarrhea, Constipation Similar symptoms before: Has not had sx before Recently seen: Clinic (chemotherapy last week) Review of Systems Constitutional: denies: Fever, Chills Nose: denies: Rhinorrhea / runny nose, Congestion Throat: denies: Sore throat Respiratory: denies: Cough GI: reports: Abdominal Pain, Nausea. 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 : None HEENT: None Psych: None Musculoskeletal: Osteoarthritis Derm: None - Past Surgical History Past Surgical History: Yes General: Cholecystectomy HEENT: Tonsil/Adenoidectomy - Present Medications Home Medications: Ambulatory Orders Medication Instructions Recorded Confirmed Pantoprazole Sodium [Protonix] 40 mg PO DAILY 07/22/19 05/30/20 Tramadol HCl 50 mg PO DAILY PRN 07/22/19 05/30/20 Lidocaine/Prilocain 2.5% Cream 1 gm TOP BID PRN #1 tube 05/07/20 05/30/20 [Emla 2.5% Cream] oxyCODONE [Roxicodone] 5 mg PO Q4-6H PRN #20 tablet 05/07/20 05/30/20 OLANZapine [Olanzapine] 5 mg PO UD #12 tablet 05/15/20 Ondansetron HCl [Zofran] 8 mg PO BID PRN #30 tablet 05/15/20 Prochlorperazine Maleate 10 mg PO Q6HR PRN #30 tab 05/15/20 [Compazine] Cefdinir 300 mg PO BID #20 capsule 06/08/20 06/27/20 LORazepam [Ativan] 0.5 mg PO HS PRN #60 tablet 06/13/20 06/27/20 OLANZapine [Olanzapine] 5 mg PO QPM PRN #60 tablet 06/27/20 Oxycodone HCl 5 mg PO Q4H PRN #20 tablet 07/03/20 Valacyclovir HCl [Valacyclovir] 1,000 mg PO TID #20 tablet 07/03/20 dexAMETHasone [Decadron] 4 mg PO DAILY #5 tablet 07/03/20 - Allergies Allergies/Adverse Reactions: Allergies Allergy/AdvReac Type Severity Reaction Status Date / Time latex AdvReac Rash Verified 07/03/20 15:34 morphine AdvReac Itching Verified 07/03/20 15:34 [From Radha ()] - Social History Does the pt smoke?: No Smoking Status: Never smoker Does the pt drink ETOH?: No Does the pt have substance abuse?: No - Immunizations Immunizations are current?: Yes - POLST Patient has POLST: No PD ED PE NORMAL - Vitals Vital signs reviewed: Yes - General General: Alert and oriented X 3, Well developed/nourished - HEENT HEENT: Pharynx benign - Neck Neck: Supple, no meningeal sign, No adenopathy - Cardiac Cardiac: RRR, No murmur - Respiratory Respiratory: Clear bilaterally - Abdomen Abdomen: Normal bowel sounds, Soft, Non distended, No organomegaly, Other (tender right upper abd from midline to RUQ, and around to right parathoracic area. No rash. Area is in band like pattern and is tender to touch.) Results - Vitals Vitals: Vital Signs - 24 hr 07/03/20 07/03/20 15:34 18:55 Temperature 36.5 C 37.1 C Heart Rate 100 96 Respiratory 16 16 Rate Blood Pressure 134/83 H 132/82 H O2 Saturation 98 98 Oxygen O2 Source Room air - Labs Labs: Laboratory Tests 07/03/20 07/03/20 07/03/20 16:31 17:20 17:20 WBC 2.8 L RBC 3.46 L Hgb 10.7 L Hct 31.9 L MCV 92.2 MCH 30.9 MCHC 33.5 RDW 15.0 Plt Count 219 MPV 8.9 Neut # (Auto) Not Reportable Lymph # (Auto) Not Reportable [place] # (Auto) Not Reportable Eos # (Auto) Not Reportable Baso # (Auto) Not Reportable Absolute Nucleated RBC Not Reportable Total Counted 100 Band Neuts % (Manual) 2 Abnorm Lymph % (Manual) 0 Nucleated RBC % Not Reportable Neutrophils # (Manual) 2.1 Lymphocytes # (Manual) 0.4 L Monocytes # (Manual) 0.2 Eosinophils # (Manual) 0.1 Basophils # (Manual) 0.0 Differential Comment MANUAL DIFFERENTIAL Manual Slide Review Indicated Platelet Estimate NORMAL (130-450,000) Platelet Morphology NORMAL APPEARANCE RBC Morph Micro Appear NORMAL APPEARANCE Sodium 138 Potassium 3.8 Chloride 103 Carbon Dioxide 25 Anion Gap 10.0 BUN 10 Creatinine 0.6 Estimated GFR (MDRD) 110 Glucose 98 Calcium 9.2 Total Bilirubin 1.1 H AST 15 ALT 23 Alkaline Phosphatase 103 Total Protein 7.1 Albumin 4.0 Globulin 3.1 Albumin/Globulin Ratio 1.3 Lipase 20 L Urine Color YELLOW Urine Clarity CLEAR Urine pH 6.0 Ur Specific [place] <=1.005 Urine Protein NEGATIVE Urine Glucose (UA) NEGATIVE Urine Ketones NEGATIVE Urine Occult Blood TRACE-LYSE Urine Nitrite NEGATIVE Urine Bilirubin NEGATIVE Urine Urobilinogen 0.2 (NORMAL) Ur Leukocyte Esterase NEGATIVE Ur Microscopic Review NOT INDICATED Urine Culture Comments NOT INDICATED - Rads (name of study) RUQ U/S Radiology: Prelim report reviewed (normal CBD.), See rad report PD MEDICAL DECISION MAKING - ED course Complexity details: reviewed results, re-evaluated patient, considered differential (has had gallbladder out. Consider blocked CBD or gastritis/duodenitis. Pattern of the pain area could be c/w early shingles. ), d/w patient Departure - Departure Disposition: 01 Home, Self Care Clinical Impression: Right upper quadrant abdominal pain Condition: Stable Record reviewed to determine appropriate education?: Yes Instructions: ED Abdominal Pain Unkn Cause Follow-Up: Artem Pope DO [Primary Care Provider] - Prescriptions: dexAMETHasone [Decadron] 4 mg PO DAILY #5 tablet Oxycodone HCl 5 mg PO Q4H PRN #20 tablet PRN Reason: Pain Valacyclovir HCl [Valacyclovir] 1,000 mg PO TID #20 tablet Comments: Your ultrasound and liver enzymes and pancreas enzymes are normal. I am suspicious for possible nerve irritation such as early shingles but not positive at this point. For now we can treat with anti-inflammatories and pain medicine. Decadron daily for 5 days as prescribed. Use Tylenol 650 mg 4 times a day for pain and add oxycodone if needed for worse pain. If you develop any small blisters or rash into the area of pain in the next day or 2, then start the valacyclovir as well. Otherwise follow-up with your primary care in the next several days, call for an appointment. Return if worsening or other symptoms develop. Discharge Date/Time: 07/03/20 19:24
[2020-07-03] MEDS ORDERED: ONDANSETRON 4 MG/2 ML VIAL IVP STA ×2 (16:10→19:05)
[2020-07-03] MEDS ORDERED: SODIUM CHLORIDE 0.9% 1,000 ML IV STA (16:10)
[2020-07-03] MEDS ORDERED: fentaNYL 100 MCG/2 ML VIAL IVP STA (16:10)
[2020-07-03 16:45] LABS: BILIRUBIN,URINE NEGATIVE (NEGATIVE); GLUCOSE, URINE (UA) NEGATIVE (NEGATIVE); KETONES,URINE (UA) NEGATIVE (NEGATIVE); LEUKOCYTE ESTERASE, URINE NEGATIVE (NEGATIVE); NITRITE,URINE NEGATIVE (NEGATIVE); OCCULT BLOOD,URINE TRACE-LYSE (NEGATIVE); PROTEIN,URINE NEGATIVE (NEGATIVE); UROBILINOGEN,URINE 0.2 (NORMAL) E.U./dL (NORMAL)
[2020-07-03 16:47] LABS: CLARITY,URINE CLEAR (CLEAR)
--- NOTE | 2020-07-03 17:11 | Ultrasound Report ---
PROCEDURE: Abdomen Limited INDICATIONS: RUQ pain since yesterday; s/p CCY, eval CBD TECHNIQUE: Real-time focused scanning was performed of the abdomen, with image documentation. COMPARISON: CT abdomen and pelvis 06/08/2020, 06/04/2020. Abdominal ultrasound 06/19/2019. FINDINGS: Liver is normal in size and homogeneous in echotexture. Liver is diffusely echogenic. Gallbladder is surgically absent. Biliary tree is nondilated. Common bile duct measures 6.0 mm. Pancreas not well-visualized due to patient body habitus and bowel gas and cannot be evaluated. Right kidney is sonographically normal. IMPRESSION: 1. Status post cholecystectomy. 2. No evidence of biliary obstruction. 3. Echogenic liver. Finding typically represents hepatic fatty infiltration, however finding is nonsp ecific and other etiologies including hepatic cirrhosis can produce a similar appearance. Recommend c orrelation with clinical and laboratory data. Reviewed by: Hailee Mendoza MD, PhD on 07/03/2020 5:09 PM PDT Approved by: Hailee Mendoza MD, PhD on 07/03/2020 5:09 PM PDT Station ID: [id number]
[2020-07-03 17:33] LABS: BASOPHILS % (AUTO) 2.8 %; EOSINOPHILS % (AUTO) 1.8 %; HGB - HEMOGLOBIN 10.7 g/dL (12.0-16.0); LYMPHOCYTES % (AUTO) 15.5 %; MEAN CORPUSCULAR HEMOGLOBIN 30.9 pg (27.0-31.0); MEAN CORPUSCULAR HGB CONC 33.5 g/dL (32.0-36.0); MEAN CORPUSCULAR VOLUME 92.2 fL (81.0-99.0); MEAN PLATELET VOLUME 8.9 fL (7.9-10.8); MONOCYTES % (AUTO) 4.9 %; NEUTROPHILS % (AUTO) 73.6 %; PLT - PLATELET COUNT 219 10^3/uL (130-450); RED BLOOD COUNT 3.46 10^6/uL (4.20-5.40); WHITE BLOOD COUNT 2.8 x10^3/uL (4.8-10.8)
[2020-07-03 17:35] LABS: ABNORMAL LYMPHS % (MANUAL) 0 %
[2020-07-03] MEDS ORDERED: MAG HYDROX/AL HYDROX/SIMETH 30 ML UDC PO STA (17:37)
[2020-07-03 17:46] LABS: ALBUMIN/GLOBULIN RATIO 1.3 (1.0-2.2); BILIRUBIN,TOTAL 1.1 mg/dL (0.2-1.0); CALCIUM 9.2 mg/dL (8.5-10.3); CREATININE 0.6 mg/dL (0.4-1.0); TOTAL PROTEIN 7.1 g/dL (6.7-8.2)
[2020-07-03 17:52] LABS: BAND NEUTROPHILS % (MANUAL) 2 %; DIFFERENTIAL COMMENT MANUAL DIFFERENTIAL; EOSINOPHILS # (MANUAL) 0.1 10^3/uL (0-0.7); LYMPHOCYTES # (MANUAL) 0.4 10^3/uL (1.5-3.5); LYMPHOCYTES % (MANUAL) 15 %; MONOCYTES # (MANUAL) 0.2 10^3/uL (0.0-1.0); PLATELET ESTIMATE, MANUAL NORMAL (130-450,000) (NORMAL); PLATELET MORPHOLOGY NORMAL APPEARANCE (NORMAL); RBC MORPHOLOGY (MULTIPLE) NORMAL APPEARANCE (NORMAL)
[2020-07-03] MEDS ORDERED: HYDROmorphone 1 MG/ML CARPUJECT IVP STA (18:13)
[2020-07-03] MEDS ORDERED: KETOROLAC 30 MG/ML VIAL IVP STA (18:14)
[2020-07-03 18:56] VITALS: BP 132/82
== END 2020-07-03 19:24 | disposition home or self-care (01) ==
LOC: ED 15:29
DX: R10.11 Right upper quadrant pain (principal)
CPT/HCPCS: 36415; 76705; 80053; 81003; 83690; 85025; 96361; 96374; 96375; 99284; 99285; A9270; J1170; 81001; 87086

== ENCOUNTER 2020-11-16 08:00 | Outpatient (CLI) | payer OTHER | END 2020-11-16 23:59 | disposition home or self-care (01) | LOC: LAB 08:00 | PROVIDERS: ATTEND Surgery | DX: Z01.812 Encounter for preprocedural laboratory examination (principal); C50.911 Malignant neoplasm of unspecified site of right female breast; Z20.822 Contact with and (suspected) exposure to COVID-19 ==

== ENCOUNTER 2020-11-19 06:17 | Day surgery (SDC) | payer OTHER ==
[~2020-11-19 06:17] MED LIST changes: -IOTHALAMATE MEGLUMINE 50 ML VIAL ONE; +LACTATED RINGERS 1,000 ML IV ONE
[2020-11-19 06:36] LABS: HCG UR QUAL NEGATIVE
[2020-11-19] MEDS ORDERED: BUPIVACAINE 0.5% PF 30 ML VIAL ONE (06:59)
[2020-11-19] MEDS ORDERED: LIDOCAINE 2%-EPI 1:100000 20 ML MDV ONE (06:59)
[2020-11-19] MEDS ORDERED: BUPIVACAINE 0.5% PF 30 ML VIAL INFIL ONE ×2 (07:18→10:30)
[2020-11-19] MEDS ORDERED: LIDOCAINE 2%-EPI 1:100000 20 ML MDV SUBQ ONE ×2 (07:19→10:30)
--- NOTE | 2020-11-19 07:25 | ANESTHESIA ---
Pre-Anesthesia VS, & Labs - Diagnosis Locally advanced right breast cancer - Procedure Bilateral Mastectomy with axillary node biopsy Vital Signs: Temp Pulse Resp BP Pulse Ox 36.2 C L 113 H 16 160/107 H 97 11/19/20 06:24 11/19/20 06:24 11/19/20 06:24 11/19/20 06:24 11/19/20 06:24 Height: 5 ft 3 in Weight (kg): 136.2 kg Body Mass Index: 53.1 BMI Classification: Morbidly Obese - NPO >8 hours - Is Patient ?: No - Lab Results Lab results reviewed: Yes Home Medications and Allergies Active Medications Cefazolin Sodium 3 gm/ Sodium (Chloride) 100 mls @ 200 mls/hr IV ONCE ONE Stop: 11/19/20 08:29 Tramadol HCl 50 mg PO DAILY PRN 07/22/19 Allergies/Adverse Reactions: Allergies Allergy/AdvReac Type Severity Reaction Status Date / Time latex Allergy Rash Verified 11/19/20 06:44 morphine AdvReac Itching Verified 11/19/20 06:44 [From Duramarp ()] Anes History & Medical History - Anesthetic History Anesthesia Complications: reports: Post-Operative Nausea/Vomiting Family history of Anesthesia Complications: Denies Family history of Malignant Hyperthermia: Denies - Medical History Cardiovascular: reports: Arrhythmia Pulmonary: reports: None Gastrointestinal: reports: GERD, Chronic diarrhea, Cholelithiasis, Other Urinary: reports: None Neuro: reports: Multiple sclerosis Musculoskeletal: reports: Osteoarthritis Endocrine/Autoimmune: reports: None Skin: reports: None Smoking Status: Never smoker - Surgical History General: Cholecystectomy Eyes Ears Nose Throat (EENT): Tonsil/Adenoidectomy Exam General: Alert, Oriented x3, Cooperative, No acute distress Dental: WNL Mouth Openin Fingerbreadth Neck Mobility: Normal Mallampati classification: I Respiratory: Lungs clear, Normal breath sounds, No respiratory distress, No accessory muscle use Cardiovascular: Regular rate, Normal S1, Normal S2, No murmurs Plan Anesthesia Type: General Consent for Procedure(s) Verified and Reviewed: Yes Code Status: Attempt Resuscitation ASA classification: 3-Severe systemic disease Is this case an emergency?: No
[2020-11-19] MEDS ORDERED: ATROPINE ABBOJECT 1 MG/10 ML SYRINGE IVP PRN (07:32)
[2020-11-19] MEDS ORDERED: NALOXONE 0.4 MG/ML VIAL IVP PRN (07:32)
[2020-11-19] MEDS ORDERED: METOCLOPRAMIDE 10 MG/2 ML VIAL IVP PRN (07:32)
[2020-11-19] MEDS ORDERED: fentaNYL 100 MCG/2 ML VIAL IVP PRN (07:32)
[2020-11-19] MEDS ORDERED: MORPHINE 2 MG/ML CARPUJECT IVP PRN (07:32)
[2020-11-19] MEDS ORDERED: ONDANSETRON 4 MG/2 ML VIAL IVP PRN ×2 (07:32→11:21)
[2020-11-19] MEDS ORDERED: ePHEDrine 50 MG/ML VIAL IVP PRN (07:32)
[2020-11-19] MEDS ORDERED: SCOPOLAMINE PATCH TOP ONE (07:40)
[2020-11-19] MEDS ORDERED: PROPOFOL 200 MG/20 ML VIAL IVP ONE (07:49)
[2020-11-19] MEDS ORDERED: MIDAZOLAM 2 MG/2 ML VIAL ONE (07:49)
[2020-11-19] MEDS ORDERED: fentaNYL 100 MCG/2 ML VIAL ONE ×3 (07:49→11:20)
[2020-11-19] MEDS ORDERED: LIDOCAINE-MPF 2% 5 ML VIAL ONE (07:49)
[2020-11-19] MEDS ORDERED: DEXAMETHASONE 10 MG/ML VIAL ONE (07:50)
[2020-11-19] MEDS ORDERED: SEVOFLURANE 250 ML LIQUID INH ONE (07:54)
[2020-11-19] MEDS ORDERED: ceFAZolin 3 GM in SODIUM CHLORIDE 0.9% 100ML 100 ML IV ONE (08:00)
[2020-11-19] MEDS ORDERED: LACTATED RINGERS 1,000 ML IV SCH (08:00)
[2020-11-19] MEDS ORDERED: HYDROmorphone 1 MG/ML CARPUJECT ONE ×3 (09:36→11:54)
[2020-11-19] MEDS ORDERED: ACETAMINOPHEN 1,000 MG/100 ML 100 ML IV ONE (09:39)
[2020-11-19] MEDS ORDERED: ONDANSETRON 4 MG/2 ML VIAL ONE (10:51)
[2020-11-19] MEDS ORDERED: LACTATED RINGERS 1,000 ML IV ONE ×2 (11:07→12:00)
--- NOTE | 2020-11-19 11:14 | OPERATIVE REPORT ---
Operative Report - General Procedure Date: 11/19/20 Planned Procedure: Bilateral mastectomy with right axillary dissection Pre-Op Diagnosis: Locally advanced right breast cancer (stage IIb) Procedure Performed: Bilateral mastectomy with right axillary dissection Post Op Diagnosis: Same - Procedure Note Primary Surgeon: Flavio Anesthesia Provider: RONA Greene Anesthesia Technique: General LMA, Local Pathology: 1. Left breast to pathology in formalin - short stitch superior and long stitch lateral 2. Right breast and axillary contents in formalin - short stitch superior and long stitch lateral. Estimated Blood Loss (mL): 200 Drain/Tube Type: Chico drain (1 19F Chico drain in each inframmary pocket) Indications: Right breast cancer Findings: Well vascularized tissue. No evidence of adherence to the muscle of the chest wall. Complications: None apparent - Other Other Information/Narrative: After obtaining informed consent, the patient is brought to the operating room and placed in the supine position on the operating table. Following successful induction of general endotracheal anesthesia, appropriate padding of all bony prominences, and placement of appropriate monitors, the right chest and axilla were prepped and draped in the standard surgical fashion. A timeout was held per scope protocol. All elements of the surgical safety checklist were followed before, during, and after the procedure. We began the procedure by infiltrating half percent Marcaine plain throughout the subcutaneous tissue of the left breast and beneath the pectoralis major and minor muscles As well as portions of the serratus anterior. This was to done to provide a field block.An incision was fashioned elliptically. As this was not intended to be a skin sparing procedure, every attempt was made to create a completely flat scar. This incision was then completed with a 10 blade scalpel. It was carried through the skin and subcutaneous tissue. Traction and countertraction were then used to divide the underlying breast tissue from the overlying dermis from the level of the incision to the clavicle superiorly medially to the sternum inferiorly to the inframammary fold and lateral to the posterior axillary line. Once a circumferential dissection had been obtained, the breast was removed in a medial to lateral fashion. All perforators were addressed with sutures or with cautery prior to division. The breast was then marked with a short stitch superior and a long stitch lateral. The wound was irrigated with warm water and aspirated free of all fluid and particulate matter. It was checked once again for hemostasis and touched up in just a couple of places with cautery. A 19 English [place]ico drain was placed in the inframammary pocket and brought out inferior medially. It was sewn into place. The skin edges were then closed in an interrupted fashion with Vicryl suture and the Endo Close device was used to approximate the skin. T The wound was covered and we turned our attention to the right side, the affected side. We began the procedure by infiltrating half percent Marcaine plain throughout the subcutaneous tissue of the breast and beneath the pectoralis major and minor muscles as well as portions of the serratus anterior. This was to done to provide a field block. An incision was fashioned ellipt [facility] and designed to mirror the incision on the left. This incision was then completed with a 10 blade scalpel. It was carried through the skin and subcutaneous tissue. Traction and countertraction were then used to divide the underlying breast tissue from the overlying dermis from the level of the incision to the clavicle superiorly medially to the sternum inferiorly to the inframammary fold and lateral to the posterior axillary line. This left the right breast attached only by the axillary tail. The tissue of the axillary node packet was then dissected from the axillary vein superiorly, the latissimus posteriorly and the pec minor anteriorly to obtain all of the level 1 and level 2 axillary node. All afferent and efferent lymphatics and vasculature were addressed with hemoclips or cautery prior to division. Once a circumferential dissection had been obtained, the breast was removed in a medial to lateral fashion. All perforators were addressed with sutures or with cautery prior to division. The breast was then marked with a short stitch superior and a long stitch lateral. The wound was irrigated with warm water and aspirated free of all fluid and particulate matter. It was checked once again for hemostasis and touched up in just a couple of places with cautery. A 19 English [place] drain was placed in the inframammary pocket and brought out inferior medially. It was sewn into place. The skin edges were then closed in an interrupted fashion with Vicryl suture and the Endo Close device was used to approximate the skin. A Provena negative pressure wound assistant manager pt was placed on either side with good seal and function. All sponge, needle, and instrument counts were correct at the conclusion of the case. The patient was allowed to wake from anesthesia without difficulty and taken to the postanesthesia care unit in good condition.
[2020-11-19] MEDS ORDERED: HYDROmorphone 0.5 MG/0.5 ML SYRINGE IVP PRN (11:21)
[2020-11-19] MEDS ORDERED: SODIUM CHLORIDE FLUSH 0.9% 10 ML SYRINGE IVP PRN (11:21)
[2020-11-19] MEDS ORDERED: LORazepam 2 MG/ML VIAL IVP PRN (11:21)
[2020-11-19] MEDS ORDERED: diphenhydrAMINE INJ 50 MG/ML VIAL IVP PRN (11:26)
[2020-11-19] MEDS ORDERED: HYDROmorphone 0.5 MG/0.5 ML SYRINGE ONE ×2 (11:38→11:42)
[2020-11-19] MEDS: HYDROmorphone 0.5 MG/0.5 ML SYRINGE IVP PRN ×2 (11:39→11:47)
[2020-11-19] MEDS: ACETAMINOPHEN 325 MG TABLET PO SCH ×2 (12:24→17:12)
[2020-11-19] MEDS: PREGABALIN 25 MG CAPSULE PO SCH ×2 (12:25→20:00)
[2020-11-19] MEDS: KETOROLAC 30 MG/ML VIAL IVP SCH ×3 (12:25→23:49)
[2020-11-19] MEDS: methocarbamoL 500 MG TABLET PO SCH ×3 (12:25→23:49)
[2020-11-19] MEDS: LACTATED RINGERS 1,000 ML IV SCH (12:26)
--- NOTE | 2020-11-19 12:27 | ANESTHESIA POST OP EVALUATION ---
Anesthesia Post Eval - Post Anesthesia Eval Vitals: Last Vital Signs Temp 36.9 C 11/19/20 12:15 Pulse 108 H 11/19/20 12:15 Resp 14 11/19/20 12:15 BP 138/98 H 11/19/20 12:15 Pulse Ox 97 11/19/20 12:15 CV Function Including HR & BP: positive: Stable Pain Control: positive: Satisfactory Nausea & Vomiting: positive: Negative Mental Status: positive: Baseline Respiratory Status: Airway Patent Hydration Status: Satisfactory Anesthesia Complications: positive: None
--- NOTE | 2020-11-19 13:45 | PHARMACY PROGRESS NOTE ---
- Best Possible Medication History Admit Date and Time: Processed by: Pharmacy Medication History completed: Yes Patient Interview: Completed Secondary Source(s): Insurance records (Interview completed by Mayelin 11/19) As the person ultimately responsible for medication therapy, providers are able to order a medication from an existing home medication list in [facility] via the "Reconcile Routine" prior to Confirmation of that medication by is support analyst. Such practice is discouraged except when the physician, in their clinical judgment, deems that a medical need exists for a medication without regard to previous use.
[2020-11-19] MEDS: ceFAZolin 2 GM/50 ML 2 GM/50 ML BAG IV SCH ×2 (14:34→21:30)
[2020-11-19] MEDS: oxyCODONE 5 MG TABLET PO PRN ×2 (15:51→20:00)
[2020-11-19] MEDS: SODIUM CHLORIDE FLUSH 0.9% 10 ML SYRINGE IVP SCH ×2 (17:11→23:50)
[2020-11-20] MEDS: oxyCODONE 5 MG TABLET PO PRN ×3 (00:14→09:42)
[2020-11-20] MEDS: ACETAMINOPHEN 325 MG TABLET PO SCH ×2 (00:14→06:07)
[2020-11-20] MEDS: LACTATED RINGERS 1,000 ML IV SCH (01:35)
[2020-11-20] MEDS: methocarbamoL 500 MG TABLET PO SCH ×2 (06:07→12:10)
[2020-11-20] MEDS: KETOROLAC 30 MG/ML VIAL IVP SCH ×2 (06:07→12:10)
[2020-11-20] MEDS ORDERED: ACETAMINOPHEN 500 MG TABLET PO ONE (06:13)
[2020-11-20] MEDS ORDERED: PANTOPRAZOLE 40 MG TABLET PO SCH (07:00)
[2020-11-20] MEDS: PREGABALIN 25 MG CAPSULE PO SCH (08:53)
[2020-11-20] MEDS: SODIUM CHLORIDE FLUSH 0.9% 10 ML SYRINGE IVP SCH (08:53)
[2020-11-20] MEDS ORDERED: ENOXAPARIN 40 MG/0.4 ML SYRINGE SUBQ SCH (09:00)
[2020-11-20] MEDS ORDERED: DOCUSATE SODIUM 250 MG CAPSULE PO SCH (12:00)
[2020-11-20] MEDS ORDERED: ACETAMINOPHEN 500 MG TABLET PO SCH (12:00)
[2020-11-20] MEDS ORDERED: ACETAMINOPHEN 325 MG TABLET PO PRN (12:49)
[2020-11-20] MEDS ORDERED: IBUPROFEN 600 MG TABLET PO PRN (12:49)
[2020-11-20] MEDS ORDERED: ONDANSETRON 4 MG/2 ML VIAL IVP PRN (12:49)
[2020-11-20] MEDS ORDERED: oxyCODONE 5 MG TABLET PO PRN (12:49)
[2020-11-20 13:19] VITALS: BP 130/70
== END 2020-11-20 13:20 | disposition home or self-care (01) ==
LOC: SDS 06:17 → MS2 12:09 → SDS 11-20 13:20
PROVIDERS: ATTEND Surgery
PROC: 07T50ZZ Resection of Right Axillary Lymphatic, Open Approach (ICD-10-PCS; 2020-11-19)
PROC: 0HBV0ZZ Excision of Bilateral Breast, Open Approach (ICD-10-PCS; principal; 2020-11-19 07:30)
DX: C50.911 Malignant neoplasm of unspecified site of right female breast (principal); Z17.0 Estrogen receptor positive status [ER+]; E66.01 Morbid (severe) obesity due to excess calories; Z68.43 Body mass index [BMI] 50.0-59.9, adult; G35 Multiple sclerosis; K21.9 Gastro-esophageal reflux disease without esophagitis
CPT/HCPCS: 19303; 36415; 38525; 81025; A9270; J0131; J0690; J1170; J1650; J3490; J7120

== ENCOUNTER 2021-03-26 16:06 | Outpatient (CLI) | payer OTHER ==
--- NOTE | 2021-03-26 18:29 | Ultrasound Report ---
PROCEDURE: Chest INDICATIONS: RIGHT SUBRACLAVICULAR FOSSA ADENOPATHY TECHNIQUE: Real-time scanning was performed, and a suitable site was marked by the auto job estimator for thoracentesis to be performed by the referring clinician. COMPARISON: None. FINDINGS: Ultrasound was performed in the area of interest. No sonographic abnormalities identified i n the area of interest. Small subcentimeter cervical lymph nodes are seen bilaterally. IMPRESSION: 1. No soft tissue mass is identified in the area of interest. 2. Bilateral small cervical lymph nodes are absent, most likely reactive. Recommend clinical follow-u p. Reviewed by: Salo Foote MD on 03/26/2021 6:28 PM PDT Approved by: Salo Foote MD on 03/26/2021 6:28 PM PDT Station ID: [id number]
--- NOTE | 2021-03-27 15:30 | ONCOLOGY/HEMATOLOGY VISIT ---
HEME/ONC PROGRESS NOTE: Chief Complaint/History of Present Illness: Patient returns for ongoing interval follow-up now status post bilateral mastectomy performed 11/19/2020 Patient tolerated procedure well and feels that she is healing well now status post follow-up visit with Dr. Weir, denies any new drainage or pain at site of surgical scar Patient continues on low-dose Effexor and states that her hot flashes are well controlled and have more or less resolved at this time She denies any new neuropathy or tingling of her fingers or toes, and generally feels well and is looking forward to the next steps in management Oncology History: 1. Stage IIb right breast cancer, ER/WY positive, HER-2 negative since 03/2020 -Presented for further evaluation right breast pain 03/2020 -Diagnostic mammogram 04/03/2020 with 3.2 cm irregular mass in addition to 1 cm spiculated margin oval mass, irregular asymmetry with spiculated margins -Biopsy 2 spiculated masses and axillary lymph nodes all positive for intermediate grade, ER 70%, WY 30Percent, HER-2/bernice negative infiltrating ductal carcinoma, high mitotic rate, tubal formation -MRI bilateral breasts 04/24/2020 at [facility], right breast 3 x 2.5 x 3.9 cm mass, posterior right breast mass 1.1 x 0.8 x 0.8 cm, multiple enlarged right axillary lymph nodes, largest with cortical thickening with 2.7 x 1.3 cm, cortex up to 1.0 cm, suspicious for metastatic disease -CT chest abdomen pelvis negative for signs of metastatic disease -Nuclear medicine bone scan negative for signs of osseous metastatic disease -AC 05/16/2020-06/27/2020 x 4 cycles -Taxol 07/11 --10/03/2020 x 12 cycles -Bilateral mastectomy 11/19/2020 -Final path right breast IDC, G2, all margins clear, axillary tail margin 1 mm, 0/3 lymph nodes positive, PT2N0, ER 70% positive, WY 30% positive, Ki-67 25% -Status post adjuvant radiation to right breast and axilla -Initiation of tamoxifen 20 mg daily 03/10/2021 2. Right-sided neck pain 3. History of multiple sclerosis Review of Systems: A complete ROS was otherwise negative in detail except per HPI ECO Past Medical/Surgical/Family/Social History: Lives with her . She has 2 elementary aged children and 2 teenagers. Works part-time at a [employer]. Reviewed from note dated 05/02/2020 and remains unchanged today. Physical Examination: General: No acute distress. HEENT: No sclera icterus. Oropharynx clear. Neck: No thyromegaly. Lymph nodes: No cervical adenopathy. Lungs: Breathing comfortably. Heart: Regular rate Breasts: Bilateral surgical scars from bilateral mastectomies, well-healing, no exudate or erythema observed Abdomen: Mild tenderness to right upper quadrant Extremities: No cyanosis, clubbing; legs no pitting edema. Skin: No petechiae, or purpura. No rash. Neuro: Face is symmetrical. Speech is fluent. She asks and answers questions appropriately demonstrating good understanding. LAB/PATHOLOGY REVIEW: Available labs/pathology reviewed. IMAGING: ASSESSMENT AND PLAN: 1. Stage IIB ER/WY positive, HER2 negative breast cancer, PT2,N0 final pathology post chemotherapy: Patient isStatus post chemotherapy, surgery and radiation, now on tamoxifen since 03/10/2021 -Would recommend starting tamoxifen 20 mg daily if patient is not to have adjuvant radiation -Referral to [facility] radiation oncology for consideration of possible adjuvant radiation versus expectant management -Discussed risks of tamoxifen including worsening hot flashes, premature menopause, increased risk of uterine cancer and blood clots 2. Nausea: Significantly improved off of chemotherapy at this time -Continue with lorazepam and ondansetron only as needed 3. Insomnia: Alternating sleep onset and sleep maintenance insomnia. Melatonin is fine to continue though only partially helpful. -Continue lorazepam, Tylenol PM and melatonin -Could consider trial of long-acting Ambien 6.25 mg which may be more helpful 4. Grade 1-2 treatment-related hot flashes- Appears to be improved at this time status post cessation of chemotherapy -Continue with low-dose Effexor 1. Stage IIB ER/WY positive, HER2 negative breast cancer, PT2,N0 final pathology post chemotherapy: a. Completed localized therapy including surgery and radiation therapy to the right breast. b. Started tamoxifen 20mg qd On 03/10/21. Tolerating well. c. Follow-up with Dr. Cameron. 2. Right supraclavicular fossa adenopathy. a. Ultrasound of the area soon. b. Follow-up with Dr. Carlos Cameron after ultrasound. E/M code was selected based on 45 minutes spent on the date of encounter reviewing pertinent history and previous diagnostics, performing medically appropriate examination and evaluation, ordering diagnostic tests and/or medications, counseling and education to patient/family/caregiver. This excludes activities performed by clinical staff Clinical Data: Allergies latex Allergy (Verified 03/22/21 15:58) Rash morphine [From Duramorph (PF)] Adverse Reaction (Verified 03/22/21 15:58) Itching Home Medications Tramadol HCl 50 mg PO Q6H PRN 07/22/19 [History Last Taken 11/18/20] Biotin 1,000 mcg PO DAILY 11/19/20 [History Last Taken Unknown] Cholecalciferol (Vitamin D3) [Vitamin D3] 25 mcg PO DAILY 11/19/20 [History Last Taken Unknown] Cyanocobalamin (Vitamin B-12) [Vitamin B-12] 1,000 mcg PO DAILY 11/19/20 [History Last Taken Unknown] Gabapentin [Neurontin] 600 mg PO BID 11/19/20 [History Last Taken 11/18/20] Venlafaxine ER [Effexor ER] 37.5 mg PO DAILY 11/19/20 [History Last Taken Unknown]
== END 2021-03-26 16:07 | disposition home or self-care (01) ==
LOC: DI 16:06
PROVIDERS: ATTEND Internal Medicine Hematology & Oncology
DX: C50.411 Malignant neoplasm of upper-outer quadrant of right female breast (principal); C77.3 Secondary and unspecified malignant neoplasm of axilla and upper limb lymph nodes

== ENCOUNTER 2021-09-06 18:02 | Outpatient (CLI) | payer OTHER | END 2021-09-06 23:59 | disposition home or self-care (01) | LOC: LAB 18:02 | PROVIDERS: ATTEND Physician Assistant | DX: U07.1 COVID-19 (principal); R30.0 Dysuria | CPT/HCPCS: 87086 ==

== ENCOUNTER 2021-09-09 14:54 | Emergency (ER) | payer OTHER ==
--- NOTE | 2021-09-09 15:15 | ED Physician Documentation ---
PD HPI URI - Stated complaint Stated Complaint: C+COUGH,HEADACHE,FEVER - History obtained from History obtained from: Patient - History of Present Illness Timing - onset: How many days ago (4-5) Timing duration: Days (4-5) Timing details: Abrupt onset, Still present Associated symptoms: Fever, Chills, Nasal congestion, Dry cough, Dyspnea Contributing factors: Sick contact, Unimmunized. No: Immunocompromised, COPD / asthma Improves by: Medication (she is using saline nebs at home (neb for her son's asthma.)) Similar symptoms before: Has not had sx before Recently seen: Clinic (seen at Walk [facility] 3 days ago with COVID test that resulted positive. Provider contacted her to assess if wants monoclonal antibodies. She agreed and PA from Clinic called ER ahead to ensure pharmacy had supply.) Review of Systems Constitutional: reports: Fever, Chills, Myalgias Nose: reports: Rhinorrhea / runny nose, Congestion Throat: denies: Sore throat Cardiac: denies: Chest pain / pressure Respiratory: reports: Dyspnea, Cough GI: reports: Nausea, Diarrhea. denies: Abdominal Pain : denies: Dysuria, Frequency Skin: denies: Rash Neurologic: reports: Generalized weakness. denies: Near syncope, Headache PD PAST MEDICAL HISTORY - Past Medical History Cardiovascular: Arrhythmia Respiratory: None Neuro: Multiple sclerosis Endocrine/Autoimmune: None GI: GERD, Chronic diarrhea, Cholelithiasis, Other CHILD PSYCHOMETRIST: Breast cancer : None HEENT: None Psych: None Musculoskeletal: Osteoarthritis Derm: None - Past Surgical History Past Surgical History: Yes General: Cholecystectomy HEENT: Tonsil/Adenoidectomy - Present Medications Home Medications: Ambulatory Orders Medication Instructions Recorded Confirmed Tramadol HCl 50 mg PO Q6H PRN 07/22/19 03/22/21 Biotin 1,000 mcg PO DAILY 11/19/20 03/22/21 Cholecalciferol (Vitamin D3) 25 mcg PO DAILY 11/19/20 03/22/21 [Vitamin D3] Cyanocobalamin (Vitamin B-12) 1,000 mcg PO DAILY 11/19/20 03/22/21 [Vitamin B-12] Gabapentin [Neurontin] 600 mg PO BID 11/19/20 05/15/21 Venlafaxine ER [Effexor ER] 37.5 mg PO DAILY 11/19/20 03/22/21 Baclofen [Lioresal] 20 mg PO TID PRN #90 tablet 05/08/21 Albuterol 2.5 mg INH Q4H PRN #30 neb 09/09/21 Benzonatate [Tessalon] 100 mg PO TID PRN #20 cap 09/09/21 dexAMETHasone [Decadron] 4 mg PO DAILY #5 tablet 09/09/21 - Allergies Allergies/Adverse Reactions: Allergies Allergy/AdvReac Type Severity Reaction Status Date / Time latex Allergy Rash Verified 03/22/21 15:58 morphine AdvReac Itching Verified 03/22/21 15:58 [From Duramorph (PF)] - Social History Does the pt smoke?: No Smoking Status: Never smoker Does the pt drink ETOH?: No Does the pt have substance abuse?: No - Immunizations Immunizations are current?: Yes - POLST Patient has POLST: No PD ED PE NORMAL - Vitals Vital signs reviewed: Yes - General General: Alert and oriented X 3, No acute distress, Well developed/nourished - HEENT HEENT: Pharynx benign - Neck Neck: Supple, no meningeal sign, No adenopathy - Cardiac Cardiac: RRR, No murmur - Respiratory Respiratory: Clear bilaterally - Abdomen Abdomen: Soft, Non tender - Derm Derm: Normal color, Warm and dry - Neuro Neuro: Alert and oriented X 3, No motor deficit, Normal speech Results - Vitals Vitals: Vital Signs - 24 hr 09/09/21 09/09/21 09/09/21 15:27 15:30 16:00 Temperature 37.0 C 37.0 C Heart Rate 96 96 89 Respiratory 20 20 22 Rate Blood Pressure 124/90 H 124/90 H 137/92 H O2 Saturation 99 99 97 09/09/21 09/09/21 09/09/21 17:00 18:00 19:13 Temperature Heart Rate 84 88 91 Respiratory 20 20 18 Rate Blood Pressure 133/94 H 132/88 H 118/81 H O2 Saturation 96 97 96 Oxygen O2 Source Room air PD MEDICAL DECISION MAKING - ED course Complexity details: re-evaluated patient, considered differential (pt here for monoclonal antibodies. Given information handout. She did okay with infusion. ), d/w patient Departure - Departure Disposition: 01 Home, Self Care Clinical Impression: Pneumonia due to COVID-19 virus Condition: Stable Follow-Up: Artem Pope DO [Primary Care Provider] - Prescriptions: Albuterol 2.5 mg INH Q4H PRN #30 neb PRN Reason: Wheezing dexAMETHasone [Decadron] 4 mg PO DAILY #5 tablet Benzonatate [Tessalon] 100 mg PO TID PRN #20 cap PRN Reason: Cough Comments: Stay well-hydrated. Tylenol or ibuprofen if needed for fevers or pains. You can use Tessalon (benzonatate) if needed for cough. Continue with the saline nebulizers to moisturize your upper airway. You could add an albuterol 4 times a day if needed for wheezing or opening airways. Decadron steroid anti- inflammatory to reduce bronchial inflammation and improve breathing as well. Follow-up with your primary care if worsening symptoms generally or return to the walk-in or ER. I transmitted your prescriptions to [facility] pharmacy in [place]. You received the monoclonal antibodies today. This should help improve your immune response to the infection. Discharge Date/Time: 09/09/21 19:29
[2021-09-09] MEDS ORDERED: DEXAMETHASONE 10 MG/ML VIAL IVP STA (15:33)
[2021-09-09] MEDS ORDERED: ONDANSETRON 4 MG/2 ML VIAL IVP STA (15:33)
[2021-09-09] MEDS ORDERED: BENZONATATE 100 MG CAPSULE PO STA (15:33)
[2021-09-09] MEDS ORDERED: KETOROLAC 15 MG/ML VIAL IVP STA (15:38)
[2021-09-09] MEDS ORDERED: CASIRIVIMAB/IMDEVIMAB 10 ML in SODIUM CHLORIDE 0.9% 50 ML IV ONE (17:00)
[2021-09-09 19:13] VITALS: BP 118/81
== END 2021-09-09 19:29 | disposition home or self-care (01) ==
LOC: ED 14:54
DX: U07.1 COVID-19 (principal); J12.82 Pneumonia due to coronavirus disease 2019; G35 Multiple sclerosis
CPT/HCPCS: 96374; 96375; 99283; 99284; A9270; J7040; M0243; Q0244

== ENCOUNTER 2021-11-05 13:10 | Outpatient (CLI) | payer OTHER ==
--- NOTE | 2021-11-07 06:32 | Ultrasound Report ---
LIMITED ULTRASOUND OF RIGHT BREAST AND SUPRACLAVICULAR: 11/05/2021 CLINICAL: Rt chest wall tenderness. Focal nodularity palpated by physician. Comparison is made to exams dated: 10/08/2020 breast MRI, 04/24/2020 breast [facility] - [facility], 04/10/2020 ultrasound biopsy, 04/10/2020 mammogram, 04/03/2020 ultrasound, and 04/03/2020 mammogram - [facility]. Color flow and real-time ultrasound of the right breast supraclavicular were performed on the areas o f interest. Swann scale images of the real-time examination were reviewed. There is a 0.5 cm x 0.2 cm x 0.4 cm oval mass with circumscribed margins in the right breast at 11 o' clock posterior depth. This oval mass is predominantly hypoechoic but of mixed echogenicity with a f atty hilum. This correlates to the area of clinical concern. Color flow imaging demonstrates that t here is no vascularity present. Otherwise, no other cystic or solid mass identified in the area of palpable abnormality. IMPRESSION: PROBABLY BENIGN The 0.5 cm x 0.2 cm x 0.4 cm oval mass in the right breast likely represents a lymph node and is prob ably benign. A follow-up ultrasound in 6 months is recommended. If clinical concern persists, further evaluation may be obtained with MRI. A follow-up ultrasound in 6 months is recommended to demonstrate stability. This exam was interpreted at Station ID: [id number]. Electronically Signed By: Neeraj Andrews M.D. ddp/:11/06/2021 10:16:35 Ultrasound BI-RADS: 3 Probably benign BI-RADS CATEGORY: (3) - 3 Ultrasound [id number] 6 month follow-up LATERALITY: (B)
== END 2021-11-05 13:11 | disposition home or self-care (01) ==
LOC: DI 13:10
PROVIDERS: ATTEND Internal Medicine
DX: N63.11 Unspecified lump in the right breast, upper outer quadrant (principal); Z90.13 Acquired absence of bilateral breasts and nipples; Z92.21 Personal history of antineoplastic chemotherapy

== ENCOUNTER 2022-06-17 16:29 | Emergency (ER) | payer OTHER ==
--- NOTE | 2022-06-17 17:18 | XRAY Report ---
PROCEDURE: Chest 1 View X-Ray INDICATIONS: Chest pain TECHNIQUE: One view of the chest was acquired. COMPARISON: None. FINDINGS: Surgical changes and devices: None. Lungs and pleura: No pleural effusions or pneumothorax. Lungs are clear. Mediastinum: Mediastinal contours appear normal. Heart size is normal. Bones and chest wall: No suspicious bony lesions. Overlying soft tissues appear unremarkable. IMPRESSION: No acute cardiopulmonary abnormality. Reviewed by: Moisés Rice MD on 06/17/2022 4:17 PM MINA Approved by: Moisés Rice MD on 06/17/2022 4:17 PM MINA Station ID: [id number]
[2022-06-17 17:19] LABS: BASOPHILS % (AUTO) 0.3 %; EOSINOPHILS # (AUTO) 0.1 10^3/uL (0.0-0.7); EOSINOPHILS % (AUTO) 1.7 %; HCT - HEMATOCRIT 40.9 % (37.0-47.0); HGB - HEMOGLOBIN 14.1 g/dL (12.0-16.0); LYMPHOCYTES # (AUTO) 1.7 10^3/uL (1.5-3.5); LYMPHOCYTES % (AUTO) 28.9 %; MEAN CORPUSCULAR HEMOGLOBIN 30.7 pg (27.0-31.0); MEAN CORPUSCULAR HGB CONC 34.5 g/dL (32.0-36.0); MEAN CORPUSCULAR VOLUME 88.9 fL (81.0-99.0); MEAN PLATELET VOLUME 8.9 fL (7.9-10.8); MONOCYTES # (AUTO) 0.5 10^3/uL (0.0-1.0); MONOCYTES % (AUTO) 9.1 %; NEUTROPHILS # (AUTO) 3.6 10^3/uL (1.5-6.6); NEUTROPHILS % (AUTO) 59.8 %; PLT - PLATELET COUNT 301 10^3/uL (130-450); RED CELL DISTRIBUTION WIDTH 12.1 % (12.0-15.0)
[2022-06-17 17:23] LABS: BILIRUBIN,URINE NEGATIVE (NEGATIVE); GLUCOSE, URINE (UA) NEGATIVE (NEGATIVE); KETONES,URINE (UA) NEGATIVE (NEGATIVE); LEUKOCYTE ESTERASE, URINE NEGATIVE (NEGATIVE); NITRITE,URINE NEGATIVE (NEGATIVE); OCCULT BLOOD,URINE TRACE-INTA (NEGATIVE); PROTEIN,URINE NEGATIVE (NEGATIVE); UROBILINOGEN,URINE 0.2 (NORMAL) E.U./dL (NORMAL)
[2022-06-17 17:28] LABS: CLARITY,URINE HAZY (CLEAR)
[2022-06-17 17:33] LABS: ALBUMIN 3.8 g/dL (3.2-5.5); ALBUMIN/GLOBULIN RATIO 1.1 (1.0-2.2); BILIRUBIN,TOTAL 0.7 mg/dL (0.2-1.0); CALCIUM 9.2 mg/dL (8.5-10.3); CREATININE 0.8 mg/dL (0.4-1.0); POTASSIUM 3.3 mmol/L (3.5-5.0); TOTAL PROTEIN 7.4 g/dL (6.7-8.2)
[2022-06-17] MEDS ORDERED: fentaNYL 100 MCG/2 ML VIAL IVP STA (17:49)
[2022-06-17] MEDS ORDERED: SODIUM CHLORIDE 0.9% 1,000 ML IV STA (17:49)
--- NOTE | 2022-06-17 17:52 | ED Physician Documentation ---
PD HPI ABD PAIN - Stated complaint Stated Complaint: BODY PAIN - Chief complaint Chief Complaint: Cardiac - History obtained from History obtained from: Patient - History of Present Illness Pain level max: 8 Pain level now: 6 Quality: Aching, Pain Associated symptoms: Nausea, Diarrhea. No: Fever, Vomiting, Hematemesis, Constipation, Melena, Hematochezia, Dysuria, Hematuria - Additional information Additional information: Patient is a 42-year-old female who presents to the emergency department with right upper quadrant abdominal pain/chest pain/right shoulder pain ongoing for the past several days. Comes and goes. She states that she had a cholecystectomy about 2 years ago. States that this does feel similar to that. Has had nausea but no vomiting. Has had some diarrhea. No constipation. No blood in the stool. No hematuria. She states the chest pain is in the center of the chest, nonradiating. Nothing seems to make it better or worse. No history of cardiac issues other than PVCs. 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: Breast cancer : None HEENT: None Psych: None Musculoskeletal: Osteoarthritis Derm: None - Past Surgical History Past Surgical History: Yes General: Cholecystectomy HEENT: Tonsil/Adenoidectomy - Present Medications Home Medications: Ambulatory Orders Medication Instructions Recorded Confirmed Tramadol HCl 50 mg PO Q6H PRN 07/22/19 03/20/22 Biotin 1,000 mcg PO DAILY 11/19/20 03/20/22 Cholecalciferol (Vitamin D3) 25 mcg PO DAILY 11/19/20 03/20/22 [Vitamin D3] Cyanocobalamin (Vitamin B-12) 1,000 mcg PO DAILY 11/19/20 03/20/22 [Vitamin B-12] Baclofen [Lioresal] 20 mg PO TID PRN #90 tablet 05/08/21 03/20/22 Albuterol 2.5 mg INH Q4H PRN #30 neb 09/09/21 03/20/22 Benzonatate [Tessalon] 100 mg PO TID PRN #20 cap 09/09/21 03/20/22 dexAMETHasone [Decadron] 4 mg PO DAILY #5 tablet 09/09/21 03/20/22 Gabapentin [Neurontin] 600 mg PO BID #120 cap 10/23/21 03/20/22 Tamoxifen Citrate 20 mg PO DAILY #30 tablet 10/23/21 03/20/22 Gabapentin [Neurontin] 600 mg PO BID #120 cap 10/30/21 03/20/22 Venlafaxine ER [Effexor ER] 75 mg PO DAILY #30 cap 10/30/21 03/20/22 Ciprofloxacin HCl [Cipro] 500 mg PO BID #20 tablet 06/17/22 Ondansetron Odt [Zofran] 4 mg TL Q6H PRN #10 tablet 06/17/22 Oxycodone HCl/Acetaminophen 1 - 2 each PO Q6H PRN #14 tablet 06/17/22 [Percocet 5-325 mg Tablet] metroNIDAZOLE [Flagyl] 500 mg PO TID #30 tablet 06/17/22 - Allergies Allergies/Adverse Reactions: Allergies Allergy/AdvReac Type Severity Reaction Status Date / Time latex Allergy Rash Verified 06/17/22 16:49 morphine AdvReac Itching Verified 06/17/22 16:49 [From Duramorph (PF)] - Social History Does the pt smoke?: No Smoking Status: Never smoker Does the pt drink ETOH?: No Does the pt have substance abuse?: No - Immunizations Immunizations are current?: Yes - POLST Patient has POLST: No PD ED PE NORMAL - Vitals Vital signs reviewed: Yes - General General: Alert and oriented X 3, No acute distress - HEENT HEENT: Moist mucous membranes - Neck Neck: Supple, no meningeal sign - Cardiac Cardiac: RRR - Respiratory Respiratory: No respiratory distress, Clear bilaterally - Abdomen Abdomen: Soft, Non distended, Other (Mild diffuse tenderness to palpation without peritoneal signs) - Back Back: No spinal TTP - Derm Derm: Warm and dry - Extremities Extremities: Normal ROM s pain, No edema, No calf tenderness / cord - Neuro Neuro: Alert and oriented X 3, lead application architect 2-12 intact, No motor deficit, No sensory deficit, Normal speech Results - Vitals Vitals: Vital Signs - 24 hr 06/17/22 06/17/22 06/17/22 16:43 16:48 17:48 Temperature 36.5 C 36.5 C Heart Rate 87 87 80 Respiratory 16 16 12 Rate Blood Pressure 142/97 H 142/97 H 125/93 H O2 Saturation 100 100 94 06/17/22 06/17/22 06/17/22 18:00 19:00 19:24 Temperature 36.5 C 36.5 C Heart Rate 82 82 80 Respiratory 14 16 15 Rate Blood Pressure 122/88 H 122/80 125/82 H O2 Saturation 96 98 97 Oxygen O2 Source Room air - EKG (time done) 1656 Rate: Rate (enter#) (90) Rhythm: NSR Mims: Normal Intervals: Normal AL QRS: Normal, LVH Ischemia: Normal ST segments - Labs Labs: Laboratory Tests 06/17/22 06/17/22 06/17/22 16:55 17:06 17:06 WBC 6.0 RBC 4.60 Hgb 14.1 Hct 40.9 MCV 88.9 MCH 30.7 MCHC 34.5 RDW 12.1 Plt Count 301 MPV 8.9 Neut # (Auto) 3.6 Lymph # (Auto) 1.7 [place] # (Auto) 0.5 Eos # (Auto) 0.1 Baso # (Auto) 0.0 Absolute Nucleated RBC 0.00 Nucleated RBC % 0.0 Sodium 137 Potassium 3.3 L Chloride 99 L Carbon Dioxide 27 Anion Gap 11.0 BUN 13 Creatinine 0.8 Estimated GFR (MDRD) 78 L Glucose 116 H Calcium 9.2 Total Bilirubin 0.7 AST 47 H ALT 60 Alkaline Phosphatase 66 Troponin I High Sens Total Protein 7.4 Albumin 3.8 Globulin 3.6 Albumin/Globulin Ratio 1.1 Lipase 29 Urine Color YELLOW Urine Clarity HAZY Urine pH 6.0 Ur Specific [place] 1.025 Urine Protein NEGATIVE Urine Glucose (UA) NEGATIVE Urine Ketones NEGATIVE Urine Occult Blood TRACE-INTA Urine Nitrite NEGATIVE Urine Bilirubin NEGATIVE Urine Urobilinogen 0.2 (NORMAL) Ur Leukocyte Esterase NEGATIVE Urine RBC 0-5 Urine WBC 0-3 Ur Squamous Epith Cells MANY Squamous H Urine Bacteria Many H Ur Microscopic Review INDICATED Urine Culture Comments NOT INDICATED 06/17/22 17:06 WBC RBC Hgb Hct MCV MCH MCHC RDW Plt Count MPV Neut # (Auto) Lymph # (Auto) [place] # (Auto) Eos # (Auto) Baso # (Auto) Absolute Nucleated RBC Nucleated RBC % Sodium Potassium Chloride Carbon Dioxide Anion Gap BUN Creatinine Estimated GFR (MDRD) Glucose Calcium Total Bilirubin AST ALT Alkaline Phosphatase Troponin I High Sens 6.1 Total Protein Albumin Globulin Albumin/Globulin Ratio Lipase Urine Color Urine Clarity Urine pH Ur Specific [place] Urine Protein Urine Glucose (UA) Urine Ketones Urine Occult Blood Urine Nitrite Urine Bilirubin Urine Urobilinogen Ur Leukocyte Esterase Urine RBC Urine WBC Ur Squamous Epith Cells Urine Bacteria Ur Microscopic Review Urine Culture Comments - Rads (name of study) CT abdomen pelvis Radiology: Final report received, EMP read contemporaneously, See rad report Chest x-ray Radiology: Final report received, EMP read contemporaneously, See rad report PD MEDICAL DECISION MAKING - ED course Complexity details: reviewed results, re-evaluated patient, considered differential, d/w patient, d/w family ED course: 42-year-old female with abdominal pain and chest pain. CT scan reveals a pancolitis. Does not have any history of inflammatory bowel disease. No history of ulcerative colitis or Crohn's disease. No history of ischemic colitis. Possible viral colitis versus bacterial colitis. Discussed treatment options with the patient, she would like to trial antibiotics. We will place her on ciprofloxacin and Flagyl. Patient is well-appearing, nontoxic. Afebrile. Pain well controlled. No acute findings consistent with acute coronary syndrome, PE, pneumothorax. Patient counseled regarding signs and symptoms for which I believe and urgent re-evaluation would be necessary. Patient with good understanding of and agreement to plan and is comfortable going home at this time This document was made in part using voice recognition software. While efforts are made to proofread this document, sound alike and grammatical errors may occur. IMPRESSION: 1. Pancolitis. Differential considerations include ischemia, infection, inflammation. 2. Hepatic steatosis. 3. Fat-containing umbilical hernia. 4. Normal appendix. Departure - Departure Disposition: 01 Home, Self Care Clinical Impression: Pancolitis Condition: Good Instructions: ED Diverticulitis Follow-Up: Artem Pope DO [Primary Care Provider] - Within 1 week Prescriptions: Ciprofloxacin HCl [Cipro] 500 mg PO BID #20 tablet metroNIDAZOLE [Flagyl] 500 mg PO TID #30 tablet Oxycodone HCl/Acetaminophen [Percocet 5-325 mg Tablet] 1 - 2 each PO Q6H PRN #14 tablet PRN Reason: pain Ondansetron Odt [Zofran] 4 mg TL Q6H PRN #10 tablet PRN Reason: Nausea / Vomiting Comments: You appear to have pancolitis on your CT scan. This is likely infectious based on your history. Please take all antibiotics until gone. Please return if you worsen. Your prescriptions were sent to [facility] in [place]. I am prescribing a short course of narcotic pain medication for you. These are potentially dangerous and addictive medications that should be used carefully. These medications may constipate you. Take an lpxx-yux-ttotqze stool softener (docusate) twice daily with plenty of water while taking these medications. If you go 24 hours without a bowel movement, take ufuc-epj-vrvuolo miralax, per package instructions. Do not drink or drive while taking these medications. If you received narcotic or sedating medications while in the emergency department, do not drive for 24 hours. Store this medication in a safe, secure place and out of reach of children. It is a violation of federal law to give or sell this medication to another person or to use in a manner other than prescribed. The ED will not refill narcotic prescriptions, including prescriptions lost or stolen. To dispose of unwanted medications: 1. [facility] at [address] in [place] has a medication drop box. They accept prescription medications (in pill form) Thursday through Thursday 9:00 a.m. to 5:00 p.m. 2. The [facility] [employer] accepts prescription medications (in pill form only) for disposal year round. Call for more information. 3. Contact the [facility] for the next [facility] sponsored prescription drug collection event. , [id number], or [id number]; Discharge Date/Time: 06/17/22 19:34
[2022-06-17 17:58] LABS: BACTERIA,URINE Many /HPF (None Seen); RBC,URINE 0-5 /HPF (0-5); SQUAMOUS EPITHELIAL CELL,UR MANY Squamous (<= Few); WBC,URINE 0-3 /HPF (0-5)
--- NOTE | 2022-06-17 18:53 | CT Report ---
PROCEDURE: Abdomen/Pelvis W INDICATIONS: RUQ abd pain, cholecystectomy 2 years ago CONTRAST: IV CONTRAST: Optiray 320 ml: 100 PO CONTRAST: *NO PO CONTRAST TECHNIQUE: After the administration of IV and no oral contrast, 5 mm thick sections acquired from the diaphragms to the symphysis. 5 mm thick coronal and sagittal reformats were acquired. For radiation dose redu ction, the following was used: automated exposure control, adjustment of mA and/or kV according to p atient size. COMPARISON: None. FINDINGS: Image quality: Excellent. ABDOMEN: Lung bases: Lung bases are clear. Heart size is normal. Solid organs: Liver and spleen are normal in size and enhancement. Diffusely decreased hepatic densi ty. Gallbladder is surgically absent Biliary system is non dilated. Pancreas enhances normally. N o adrenal nodules. Kidneys demonstrate normal size and enhancement, without hydronephrosis. Peritoneum and bowel: Stomach and small bowel are within normal limits. Appendix is normal. There is moderate diffuse thickening of the colon which demonstrate mild surrounding fat stranding.. No free fluid or air. Nodes and vessels: No retroperitoneal or mesenteric adenopathy by size criteria. Aorta and inferior vena cava are normal in size. Miscellaneous: Fat-containing umbilical hernia measuring 25 mm. PELVIS: Genitourinary: Bladder wall thickness is normal. Miscellaneous: No inguinal hernias or adenopathy. Bones: No suspicious bony lesions. No vertebral body compression fractures. IMPRESSION: 1. Pancolitis. Differential considerations include ischemia, infection, inflammation. 2. Hepatic steatosis. 3. Fat-containing umbilical hernia. 4. Normal appendix. Reviewed by: Bharti Mccabe MD on 06/17/2022 6:52 PM PDT Approved by: Bharti Mccabe MD on 06/17/2022 6:52 PM PDT Station ID: [id number]
[2022-06-17] MEDS ORDERED: CIPROFLOXACIN 250 MG TABLET PO STA (19:09)
[2022-06-17] MEDS ORDERED: metroNIDAZOLE 250 MG TABLET PO STA (19:09)
[2022-06-17] MEDS ORDERED: oxyCODONE 5 MG TABLET PO STA (19:09)
[2022-06-17 19:25] VITALS: BP 125/82
== END 2022-06-17 19:34 | disposition home or self-care (01) ==
LOC: ED 16:29
DX: K51.00 Ulcerative (chronic) pancolitis without complications (principal)
CPT/HCPCS: 36415; 71045; 74177; 80053; 81001; 83690; 84484; 85025; 93005; 96374; 99284; A9270; Q9967; 81003; 87086

== ENCOUNTER 2022-07-03 11:30 | Emergency (ER) | payer OTHER ==
[2022-07-03 12:00] LABS: BASOPHILS # (AUTO) 0.1 10^3/uL (0.0-0.1); BASOPHILS % (AUTO) 0.9 %; EOSINOPHILS # (AUTO) 0.1 10^3/uL (0.0-0.7); EOSINOPHILS % (AUTO) 1.6 %; HCT - HEMATOCRIT 40.1 % (37.0-47.0); HGB - HEMOGLOBIN 13.8 g/dL (12.0-16.0); LYMPHOCYTES # (AUTO) 1.5 10^3/uL (1.5-3.5); MEAN CORPUSCULAR HEMOGLOBIN 30.9 pg (27.0-31.0); MEAN CORPUSCULAR HGB CONC 34.4 g/dL (32.0-36.0); MEAN CORPUSCULAR VOLUME 89.9 fL (81.0-99.0); MEAN PLATELET VOLUME 8.5 fL (7.9-10.8); MONOCYTES # (AUTO) 0.5 10^3/uL (0.0-1.0); NEUTROPHILS # (AUTO) 4.5 10^3/uL (1.5-6.6); NEUTROPHILS % (AUTO) 67.2 %; PLT - PLATELET COUNT 303 10^3/uL (130-450); RED BLOOD COUNT 4.46 10^6/uL (4.20-5.40); RED CELL DISTRIBUTION WIDTH 12.7 % (12.0-15.0); WHITE BLOOD COUNT 6.7 x10^3/uL (4.8-10.8)
[2022-07-03 12:10] LABS: ALBUMIN/GLOBULIN RATIO 1.2 (1.0-2.2); BILIRUBIN,TOTAL 1.4 mg/dL (0.2-1.0); CALCIUM 9.3 mg/dL (8.5-10.3); CREATININE 0.7 mg/dL (0.4-1.0); POTASSIUM 3.9 mmol/L (3.5-5.0); TOTAL PROTEIN 7.3 g/dL (6.7-8.2)
[2022-07-03] MEDS ORDERED: MAG HYDROX/AL HYDROX/SIMETH 30 ML UDC PO STA (12:17)
[2022-07-03] MEDS ORDERED: LIDOCAINE VISCOUS 2% 15 ML UDC MM STA (12:17)
--- NOTE | 2022-07-03 12:19 | ED Physician Documentation ---
PD HPI ABD PAIN - Stated complaint Stated Complaint: ABD PX - Chief complaint Chief Complaint: Abd Pain - History obtained from History obtained from: Patient - Additional information Additional information: 42-year-old woman with breast cancer in remission on Lupron and tamoxifen, and remote cholecystectomy in 2019 presents for abdominal pain. She was seen by my partner on the sixth of this month for the same pain, it seems to be focused in the right upper quadrant but radiates to the back and to the right shoulder. It is worse after eating, seems worse after heavier food/fatty foods and the pain worsens about half an hour after eating. She was seen here and labs were done, which were unremarkable with the exception of very mildly elevated AST at 47, normal CBC, and a CT with IV contrast showing pancolitis, fatty liver, umbilical hernia. She was started on Cipro and Flagyl for 10 days and that helped a lot finishing those antibiotics mid last week. Pain recurred a few nights ago after eating tacos. No changes in bowel movements. No fevers. No nausea. 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: Breast cancer : None HEENT: None Psych: None Musculoskeletal: Osteoarthritis Derm: None - Past Surgical History Past Surgical History: Yes General: Cholecystectomy HEENT: Tonsil/Adenoidectomy - Present Medications Home Medications: Ambulatory Orders Medication Instructions Recorded Confirmed Tramadol HCl 50 mg PO Q6H PRN 07/22/19 06/26/22 Biotin 1,000 mcg PO DAILY 11/19/20 06/26/22 Cholecalciferol (Vitamin D3) 25 mcg PO DAILY 11/19/20 06/26/22 [Vitamin D3] Cyanocobalamin (Vitamin B-12) 1,000 mcg PO DAILY 11/19/20 06/26/22 [Vitamin B-12] Baclofen [Lioresal] 20 mg PO TID PRN #90 tablet 05/08/21 06/26/22 Albuterol 2.5 mg INH Q4H PRN #30 neb 09/09/21 06/26/22 Benzonatate [Tessalon] 100 mg PO TID PRN #20 cap 09/09/21 06/26/22 dexAMETHasone [Decadron] 4 mg PO DAILY #5 tablet 09/09/21 06/26/22 Gabapentin [Neurontin] 600 mg PO BID #120 cap 10/23/21 06/26/22 Tamoxifen Citrate 20 mg PO DAILY #30 tablet 10/23/21 06/26/22 Gabapentin [Neurontin] 600 mg PO BID #120 cap 10/30/21 06/26/22 Venlafaxine ER [Effexor ER] 75 mg PO DAILY #30 cap 10/30/21 06/26/22 Ciprofloxacin HCl [Cipro] 500 mg PO BID #20 tablet 06/17/22 06/26/22 Ondansetron Odt [Zofran] 4 mg TL Q6H PRN #10 tablet 06/17/22 06/26/22 Oxycodone HCl/Acetaminophen 1 - 2 each PO Q6H PRN #14 tablet 06/17/22 06/26/22 [Percocet 5-325 mg Tablet] metroNIDAZOLE [Flagyl] 500 mg PO TID #30 tablet 06/17/22 06/26/22 Oxycodone HCl/Acetaminophen 1 - 2 each PO Q6H PRN #14 tablet 07/03/22 [Percocet 5-325 mg Tablet] - Allergies Allergies/Adverse Reactions: Allergies Allergy/AdvReac Type Severity Reaction Status Date / Time latex Allergy Rash Verified 07/03/22 11:37 morphine AdvReac Itching Verified 07/03/22 11:37 [From Duramorph (PF)] - Social History Does the pt smoke?: No Smoking Status: Never smoker Does the pt drink ETOH?: No Does the pt have substance abuse?: No - Immunizations Immunizations are current?: Yes - POLST Patient has POLST: No PD ED PE NORMAL - Vitals Vital signs reviewed: Yes - General General: Alert and oriented X 3, No acute distress - Cardiac Cardiac: RRR, No murmur - Respiratory Respiratory: No respiratory distress, Clear bilaterally - Abdomen Abdomen: Other (Modest tenderness in the right upper quadrant and occasionally wincing in pain. No surgical signs.) - Neuro Neuro: Alert and oriented X 3, Normal speech - Psych Psych: Normal mood, Normal affect Results - Vitals Vitals: Vital Signs - 24 hr 07/03/22 07/03/22 11:34 14:28 Temperature 36.4 C L Heart Rate 102 H 73 Respiratory 20 14 Rate Blood Pressure 136/100 H 156/96 H O2 Saturation 97 98 Oxygen O2 Source Room air - Labs Labs: Laboratory Tests 07/03/22 07/03/22 07/03/22 11:49 11:49 12:26 WBC 6.7 RBC 4.46 Hgb 13.8 Hct 40.1 MCV 89.9 MCH 30.9 MCHC 34.4 RDW 12.7 Plt Count 303 MPV 8.5 Neut # (Auto) 4.5 Lymph # (Auto) 1.5 [place] # (Auto) 0.5 Eos # (Auto) 0.1 Baso # (Auto) 0.1 Absolute Nucleated RBC 0.00 Nucleated RBC % 0.0 Sodium 139 Potassium 3.9 Chloride 103 Carbon Dioxide 27 Anion Gap 9.0 BUN 15 Creatinine 0.7 Estimated GFR (MDRD) 91 Glucose 120 H Calcium 9.3 Total Bilirubin 1.4 H AST 25 ALT 29 Alkaline Phosphatase 57 Total Protein 7.3 Albumin 4.0 Globulin 3.3 Albumin/Globulin Ratio 1.2 Lipase 29 Urine Color DARK YELLOW Urine Clarity CLEAR Urine pH 6.0 Ur Specific [place] >=1.030 H Urine Protein TRACE Urine Glucose (UA) NEGATIVE Urine Ketones TRACE Urine Occult Blood NEGATIVE Urine Nitrite NEGATIVE Urine Bilirubin NEGATIVE Urine Urobilinogen 0.2 (NORMAL) Ur Leukocyte Esterase TRACE H Urine RBC 0-5 Urine WBC 6-10 H Ur Squamous Epith Cells MANY Squamous H Urine Bacteria Moderate H Urine Mucus Marked Strands Ur Microscopic Review INDICATED Urine Culture Comments NOT INDICATED Urine HCG, Qual 07/03/22 12:26 WBC RBC Hgb Hct MCV MCH MCHC RDW Plt Count MPV Neut # (Auto) Lymph # (Auto) [place] # (Auto) Eos # (Auto) Baso # (Auto) Absolute Nucleated RBC Nucleated RBC % Sodium Potassium Chloride Carbon Dioxide Anion Gap BUN Creatinine Estimated GFR (MDRD) Glucose Calcium Total Bilirubin AST ALT Alkaline Phosphatase Total Protein Albumin Globulin Albumin/Globulin Ratio Lipase Urine Color Urine Clarity Urine pH Ur Specific [place] Urine Protein Urine Glucose (UA) Urine Ketones Urine Occult Blood Urine Nitrite Urine Bilirubin Urine Urobilinogen Ur Leukocyte Esterase Urine RBC Urine WBC Ur Squamous Epith Cells Urine Bacteria Urine Mucus Ur Microscopic Review Urine Culture Comments Urine HCG, Qual NEGATIVE PD MEDICAL DECISION MAKING - ED course ED course: 42-year-old woman with recurrent right upper quadrant pain previously diagnosed as colitis and did improve with Cipro and Flagyl, now back. Never had a colonoscopy, not very tender on exam. Labs notable for mild elevation in bilirubin that was not present on prior evaluation, otherwise unremarkable. Right upper quadrant ultrasound done. Negative findings. We discussed options of further work-up with repeat CT versus repeat of antibiotics given that they helped previously and she would like to go ahead with CT after discussion. Consideration given to PE, but she has no shortness of breath and the pain is not pleuritic. Also it is closely tied with eating. CT showing fatty liver, otherwise negative findings. The prior finding of pancolitis has resolved. Discussed need for further work-up such as upper and lower endoscopy and/or MRCP, but the remainder of the out work-up can be outpatient. Departure - Departure Disposition: 01 Home, Self Care Clinical Impression: Right upper quadrant abdominal pain Condition: Good Record reviewed to determine appropriate education?: Yes Instructions: ED Abdominal Pain Female Non-Specific Abdominal Pain Prescriptions: Oxycodone HCl/Acetaminophen [Percocet 5-325 mg Tablet] 1 - 2 each PO Q6H PRN #14 tablet PRN Reason: pain Comments: I sent your prescription electronically to the [facility] pharmacy at the [address] of [address] [address] [address] [facility] here in [place]. As discussed, CAT scan, labs, ultrasound are negative with the exception of findings of fatty liver and mild elevation of your bilirubin to 1.4 which is new compared to 2 weeks ago. The finding of pancolitis seen on prior CT has apparently resolved. Follow-up with Dr. Pope, consideration for further testing such as upper and lower endoscopy and/or MRCP especially if your bilirubin remains elevated since this does sound like a "gallbladder pain" despite your lack of gallbladder. Return for new or worsening symptoms. I am prescribing a short course of narcotic pain medication for you. These are potentially dangerous and addictive medications that should be used carefully. These medications may constipate you. Take an ldpi-spa-pamnyxh stool softener (docusate) twice daily with plenty of water while taking these medications. If you go 24 hours without a bowel movement, take ilgu-mql-axjfwht miralax, per package instructions. Do not drink or drive while taking these medications. If you received narcotic or sedating medications while in the emergency department, do not drive for 24 hours. Store this medication in a safe, secure place and out of reach of children. It is a violation of federal law to give or sell this medication to another person or to use in a manner other than prescribed. The ED will not refill narcotic prescriptions, including prescriptions lost or stolen. To dispose of unwanted medications: 1. [facility] at [address] in [place] has a medication drop box. They accept prescription medications (in pill form) Thursday through Thursday 9:00 a.m. to 5:00 p.m. 2. The [facility] [employer] [facility] accepts prescription medications (in pill form only) for disposal year round. Call for more information. 3. Contact the [facility] for the next [facility] sponsored prescription drug collection event. , [id number], or [id number]; Note that many narcotic pain relievers also contain Tylenol/acetaminophen. Please ensure that your total dose of acetaminophen from all sources does not exceed 3 g (3000 mg) per day.
[2022-07-03 12:34] LABS: GLUCOSE, URINE (UA) NEGATIVE (NEGATIVE); KETONES,URINE (UA) TRACE mg/dL (NEGATIVE); LEUKOCYTE ESTERASE, URINE TRACE (NEGATIVE); NITRITE,URINE NEGATIVE (NEGATIVE); OCCULT BLOOD,URINE NEGATIVE (NEGATIVE); PROTEIN,URINE TRACE mg/dL (NEGATIVE); UROBILINOGEN,URINE 0.2 (NORMAL) E.U./dL (NORMAL)
[2022-07-03 12:37] LABS: HCG UR QUAL NEGATIVE
[2022-07-03 12:44] LABS: BILIRUBIN,URINE NEGATIVE (NEGATIVE); CLARITY,URINE CLEAR (CLEAR); ICTOTEST,URINE NEGATIVE
[2022-07-03] MEDS ORDERED: KETOROLAC 60 MG/2 ML VIAL IM STA (12:49)
[2022-07-03] MEDS ORDERED: HYDROmorphone 1 MG/ML CARPUJECT IM STA (12:49)
[2022-07-03 12:52] LABS: BACTERIA,URINE Moderate /HPF (None Seen); MUCUS,URINE Marked Strands; RBC,URINE 0-5 /HPF (0-5); SQUAMOUS EPITHELIAL CELL,UR MANY Squamous (<= Few)
--- NOTE | 2022-07-03 14:08 | Ultrasound Report ---
PROCEDURE: Abdomen Limited INDICATIONS: RUQ pain, no GB, rising bili TECHNIQUE: Real-time focused scanning was performed of the abdomen, with image documentation. COMPARISON: 07/03/2020 FINDINGS: Liver: Liver shows diffusely increased echogenicity without focal mass lesion. No intrahepatic duct al dilation. Gallbladder: Cholecystectomy and Common Bile Duct: 9.1 mm. Pancreas: Unremarkable as visualized. Right Kidney: Appropriate in size and echotexture. No evidence of hydronephrosis. No shadowing calc gemma. No solid or cystic mass lesion. IMPRESSION: Unremarkable right upper quadrant ultrasound Reviewed by: Amadeo Valdez MD on 07/03/2022 1:07 PM MINA Approved by: Amadeo Valdez MD on 07/03/2022 1:07 PM MINA Station ID: [id number]
--- NOTE | 2022-07-03 15:36 | CT Report ---
PROCEDURE: Abdomen/Pelvis W INDICATIONS: IV only, RUQ pain CONTRAST: IV CONTRAST: Optiray 320 ml: 100 PO CONTRAST: *NO PO CONTRAST TECHNIQUE: After the administration of IV contrast, 5 mm thick sections acquired from the diaphragms to the symp hysis. 5 mm thick coronal and sagittal reformats were acquired. For radiation dose reduction, the f ollowing was used: automated exposure control, adjustment of mA and/or kV according to patient size. COMPARISON: None. FINDINGS: Image quality: Excellent. ABDOMEN: Lung bases: Lung bases are clear. Heart size is normal. Solid organs: The liver is elongated measuring 23.1 cm in length and mildly diffusely hypodense. The spleen is normal size. Gallbladder is surgically absent. Biliary system is non dilated. Pancreas enhances normally. No adrenal nodules. Kidneys demonstrate normal size and enhancement, without hyd ronephrosis. Peritoneum and bowel: Stomach and bowel loops demonstrate normal wall thickness and caliber. No free fluid or air. Normal appendix without surrounding inflammation. Nodes and vessels: No retroperitoneal or mesenteric adenopathy by size criteria. Aorta and inferior vena cava are normal in size. Miscellaneous: Tiny fat-containing uninflamed supraumbilical hernia. PELVIS: Genitourinary: Bladder wall thickness is normal. Normal uterus and ovaries. Miscellaneous: No inguinal hernias or adenopathy. Bones: No suspicious bony lesions. No vertebral body compression fractures. IMPRESSION: 1. Hepatomegaly and mild hepatic steatosis. 2. Normal appendix. 3. Postcholecystectomy without biliary dilatation. Reviewed by: Constanza Brasher MD on 07/03/2022 3:34 PM PDT Approved by: Constanza Brasher MD on 07/03/2022 3:34 PM PDT Station ID: [id number]
[2022-07-03 15:59] VITALS: BP 147/94
== END 2022-07-03 16:00 | disposition home or self-care (01) ==
LOC: ED 11:30
DX: R10.11 Right upper quadrant pain (principal)
CPT/HCPCS: 36415; 74177; 76705; 80053; 81001; 81025; 83690; 85025; 96372; 99284; A9270; J1170; Q9967; 81003; 87086

== ENCOUNTER 2024-02-29 19:53 | Emergency (ER) | payer BC ==
[2024-02-29 20:20] LABS: BASOPHILS # (AUTO) 0.1 10^3/uL (0.0-0.1); BASOPHILS % (AUTO) 0.8 %; EOSINOPHILS # (AUTO) 0.2 10^3/uL (0.0-0.7); EOSINOPHILS % (AUTO) 2.4 %; HCT - HEMATOCRIT 37.6 % (37.0-47.0); HGB - HEMOGLOBIN 12.4 g/dL (12.0-16.0); LYMPHOCYTES # (AUTO) 2.3 10^3/uL (1.5-3.5); LYMPHOCYTES % (AUTO) 37.7 %; MEAN CORPUSCULAR HEMOGLOBIN 29.6 pg (27.0-31.0); MEAN CORPUSCULAR VOLUME 89.7 fL (81.0-99.0); MEAN PLATELET VOLUME 8.7 fL (7.9-10.8); MONOCYTES # (AUTO) 0.4 10^3/uL (0.0-1.0); MONOCYTES % (AUTO) 6.4 %; NEUTROPHILS # (AUTO) 3.2 10^3/uL (1.5-6.6); NEUTROPHILS % (AUTO) 52.4 %; PLT - PLATELET COUNT 296 10^3/uL (130-450); RED BLOOD COUNT 4.19 10^6/uL (4.20-5.40); RED CELL DISTRIBUTION WIDTH 11.9 % (12.0-15.0); WHITE BLOOD COUNT 6.1 x10^3/uL (4.8-10.8)
[2024-02-29 20:35] LABS: ALBUMIN/GLOBULIN RATIO 1.7 (1.0-2.2); BILIRUBIN,TOTAL 0.8 mg/dL (0.2-1.0); CALCIUM 9.3 mg/dL (8.5-10.3); CREATININE 0.7 mg/dL (0.6-1.3); POTASSIUM 3.5 mmol/L (3.5-4.5); TOTAL PROTEIN 6.3 g/dL (6.4-8.9)
[2024-02-29 20:40] LABS: TROPONIN I HIGH SENSITIVITY 5.7 ng/L (2.3-14.8)
--- NOTE | 2024-02-29 20:54 | XRAY Report ---
PROCEDURE: Chest 2V INDICATIONS: chest pain TECHNIQUE: 2 views of the chest were acquired. COMPARISON: None. FINDINGS: Surgical changes and devices: Surgical clips bilateral axilla. Cholecystectomy clips. Lungs and pleura: No pleural effusions or pneumothorax. Lungs are clear. Mediastinum: Mediastinal contours appear normal. Heart size is normal. Bones and chest wall: No suspicious bony lesions. Overlying soft tissues appear unremarkable. IMPRESSION: No acute cardiopulmonary process. Reviewed by: Constanza Brasher MD on 02/29/2024 8:52 PM PDT Approved by: Constanza Brasher MD on 02/29/2024 8:52 PM PDT Station ID: [id number]
--- NOTE | 2024-02-29 21:16 | ED Physician Documentation ---
PD HPI CHEST PAIN - Stated complaint Stated Complaint: CHEST PX - Chief complaint Chief Complaint: Cardiac - History obtained from History obtained from: Patient - Additional information Additional information: HPI from patient. Patient c/o sudden onset pain upper back ("between my shoulder blades", per patient) while at work seated at a desk this evening. The pain radiated to anterior chest, predominantly left-sided and radiating down LUE. Denies dyspnea, n/v. No exacerbating nor ameliorating factors. Denies h/o similar symptoms. Denies leg swelling. Review of Systems Cardiac: reports: Chest pain / pressure. denies: Palpitations, Pedal edema, Calf pain Respiratory: denies: Dyspnea GI: denies: Abdominal Pain, Nausea, Vomiting PD PAST MEDICAL HISTORY - Past Medical History Past Medical History: Yes Cardiovascular: Arrhythmia Respiratory: None Neuro: Multiple sclerosis Endocrine/Autoimmune: None GI: GERD, Chronic diarrhea, Cholelithiasis, Other [employer]: Breast cancer : None HEENT: None Psych: Depression Musculoskeletal: Osteoarthritis Derm: None Other Past Medical History: breast ca - Past Surgical History Past Surgical History: Yes General: Cholecystectomy HEENT: Tonsil/Adenoidectomy - Present Medications Home Medications: Ambulatory Orders Medication Instructions Recorded Confirmed Tramadol HCl 50 mg PO Q6H PRN 07/22/19 02/17/24 Biotin 1,000 mcg PO DAILY 11/19/20 02/17/24 Cholecalciferol (Vitamin D3) 25 mcg PO DAILY 11/19/20 02/17/24 [Vitamin D3] Cyanocobalamin (Vitamin B-12) 1,000 mcg PO DAILY 11/19/20 02/17/24 [Vitamin B-12] Baclofen [Lioresal] 20 mg PO TID PRN #90 tablet 05/08/21 02/17/24 Gabapentin [Neurontin] 600 mg PO BID #120 cap 10/23/21 02/17/24 Tamoxifen Citrate 20 mg PO DAILY #30 tablet 10/23/21 02/17/24 Leuprolide Acetate [Lupron Depot] 3.75 mg IM ONCE 08/22/22 02/17/24 Venlafaxine ER [Effexor ER] 75 mg PO DAILY #30 cap 02/04/23 02/17/24 Anastrozole 1 mg ORAL DAILY 30 Days #30 tablet 02/17/24 - Allergies Allergies/Adverse Reactions: Allergies Allergy/AdvReac Type Severity Reaction Status Date / Time latex Allergy Rash Verified 02/29/24 20:04 morphine AdvReac Itching Verified 02/29/24 20:04 [From Radha (LYDIA)] - Social History Does the pt smoke?: No Smoking Status: Never smoker Does the pt drink ETOH?: No Does the pt have substance abuse?: No - Immunizations Immunizations are current?: Yes - POLST Patient has POLST: No PD ED PE NORMAL - Vitals Vital signs reviewed: Yes - General General: Alert and oriented X 3, No acute distress, Well developed/nourished - Cardiac Cardiac: RRR, No murmur, No gallop, No rub - Respiratory Respiratory: No respiratory distress, Clear bilaterally - Abdomen Abdomen: Soft, Non tender - Extremities Extremities: No edema Results - Vitals Vitals: Vital Signs - 24 hr 02/29/24 02/29/24 03/01/24 20:00 22:00 00:00 Temperature 36.2 C L Heart Rate 90 67 64 Respiratory 18 18 16 Rate Blood Pressure 142/100 H 153/100 H 141/85 H O2 Saturation 99 100 100 Oxygen O2 Source Room air - EKG (time done) No standard instances EKG releavant findings:: EKG personally interpreted by author of this note. Relevant findings are: Rate: Rate (enter#) (78) Rhythm: NSR [place]: LAD Intervals: Normal MS QRS: LVH Ischemia: Normal ST segments. No: Q waves - Labs Labs: Laboratory Tests 02/29/24 02/29/24 20:16 20:16 WBC 6.1 RBC 4.19 L Hgb 12.4 Hct 37.6 MCV 89.7 MCH 29.6 MCHC 33.0 RDW 11.9 L Plt Count 296 MPV 8.7 Neut # (Auto) 3.2 Lymph # (Auto) 2.3 [place] # (Auto) 0.4 Eos # (Auto) 0.2 Baso # (Auto) 0.1 Absolute Nucleated RBC 0.00 Nucleated RBC % 0.0 Sodium 140 Potassium 3.5 Chloride 106 Carbon Dioxide 28 Anion Gap 6.0 BUN 15 Creatinine 0.7 Estimated GFR (MDRD) 91 Glucose 116 H Calcium 9.3 Total Bilirubin 0.8 AST 16 ALT 12 Alkaline Phosphatase 60 Troponin I High Sens 5.7 Total Protein 6.3 L Albumin 4.0 Globulin 2.3 Albumin/Globulin Ratio 1.7 - Rads (name of study) chest xray Relevant Findings:: Prelim report reviewed, See rad report CTA chest Relevant Findings:: Prelim report reviewed, See rad report PD Medical Decision Making - ED course Complexity details: reviewed results, re-evaluated patient, considered differential, d/w patient ED course: No concerning nor diagnostic findings on tonight's tests including EKG, blood tests (including normal hs-cTn), chest xray, and CTA chest. The CTA chest was performed due to description of pain originating between shoulder blades, raising suspicion of aortic dissection but no evidence of aortic abnormality on this study. Etiology of patient's symptoms is not apparent at this time. Results d/w patient, return precautions reviewed, and patient advised to contact PCP to arrange for next available appointment for reevaluation. Departure - Departure Disposition: 01 Home, Self Care Clinical Impression: Chest pain Condition: Good Instructions: ED Chest Pain Atypical Unkn Cause Follow-Up: Artem Pope DO [Primary Care Provider] - Comments: There were no concerning nor diagnostic findings on tonight's test, including the EKG, blood tests, chest xray, and the CT scan of your chest. The cause of your symptoms is not apparent at this time. I recommend that you contact your primary care provider in the morning to arrange for the next available appointment for reevaluation/follow-up. Further testing might be indicated even if your symptoms are not recurrent. Forms: PCP List Discharge Date/Time: 03/01/24 00:21
[2024-02-29] MEDS ORDERED: iohexoL-300 100 ML VIAL ONE (21:49)
[2024-02-29] MEDS: iohexoL-300 100 ML VIAL IVP ONE (22:04)
[2024-02-29 22:17] VITALS: O2SAT 100
--- NOTE | 2024-02-29 23:30 | CT Report ---
PROCEDURE: Angio Chest INDICATIONS: chest/midline back pain CONTRAST: Omni 300, 80mls TECHNIQUE: After the administration of intravenous contrast, 2 mm axial images were acquired from the pulmonary apices to the posterior costophrenic angles during the arterial phase. In addition, 1 mm lung kernel and 5 mm soft tissue kernel reconstructions were performed. 3-dimensional coronal oblique maximum int ensity projection (MIP) reformats, 8 mm axial MIP, and 5 mm coronal and sagittal MPR reformats were t hen performed through the thorax. For radiation dose reduction, the following was used: automated exp osure control, adjustment of mA and/or kV according to patient size. COMPARISON: Chest CT 02/24/2023 FINDINGS: Image quality: Excellent. Large vessels: No filling defects within the opacified pulmonary arteries, accounting for motion and contrast timing. No evidence of acute aortic syndrome or aortic aneurysm. Lungs and pleura: No consolidation. No pleural effusions. No pneumothorax. No suspicious pulmonary n odules which require follow up. Mediastinum: Heart size is normal. No pericardial effusion. No large vessel abnormality. No mediastin al adenopathy by size criteria. Chest wall and lower neck: No chest wall mass. There are surgical changes of mastectomy. Visible port ion of the thyroid gland appears normal. No axillary or supraclavicular adenopathy by size. Bones: No aggressive osseous abnormality. Upper Abdomen: Unremarkable. Postcholecystectomy. IMPRESSION: No pulmonary embolus. No acute aortic syndrome. Surgical changes of mastectomy. No evidence of residual or recurrent disease in the chest. Reviewed by: Constanza Brasher MD on 02/29/2024 11:28 PM PDT Approved by: Constanza Brasher MD on 02/29/2024 11:28 PM PDT Station ID: [id number]
[2024-03-01 00:10] VITALS: BP 141/85
== END 2024-03-01 00:21 | disposition home or self-care (01) ==
LOC: ED 19:53
DX: R07.9 Chest pain, unspecified (principal)
CPT/HCPCS: 36415; 71046; 71275; 80053; 84484; 85025; 93005; 99284; Q9967